=== PATIENT | female | born 1940 | race Caucasian/White ===

== ENCOUNTER 2018-07-28 11:30 | Outpatient (CLI) | payer MEDICARE, BC | END 2018-07-28 11:31 | disposition home or self-care (01) | LOC: BICMAMMO 11:30 | PROVIDERS: ATTEND Orthopaedic Surgery Sports Medicine | DX: Z12.31 Encounter for screening mammogram for malignant neoplasm of breast (principal); R92.1 Mammographic calcification found on diagnostic imaging of breast | CPT/HCPCS: 77063; 77067 ==

== ENCOUNTER 2018-11-27 11:09 | Emergency (ER) | payer MEDICARE, BC ==
[2018-11-27] MEDS ORDERED: Morphine 4 MG/ML VIAL ONE (11:50)
[2018-11-27] MEDS ORDERED: Ondansetron PF 4 MG/2 ML Vial ONE (11:50)
[2018-11-27 12:00] LABS: #Lymphocytes 0.8 thou/uL (1.20-3.40); #Monocytes 0.3 thou/uL (0.11-0.59); #Neutrophils 8.2 thou/uL (1.40-6.50); %Basophils 0.2 % (0.0-1.0); %Eosinophils 0.4 % (0.0-10.0); %Monocytes 3.5 % (0.0-10.0); %Neutrophils 87.9 % (42.0-75.0); Hemoglobin 13.9 g/dL (12.0-16.0); Mean Corpuscular HGB CONC 34.3 g/dL (32.0-36.0); Mean Corpuscular Hemoglobin 30.3 pg (27.0-31.0); Mean Corpuscular Volume 88.4 fL (78.0-98.0); Mean Platelet Volume 7.3 fL (7.4-10.4); Platelet Count 216 thou/uL (130-400); RBC Distribution Width 12.1 % (11.5-14.5); Red Blood Cell (RBC) Count 4.58 mill/uL (4.20-5.40); White Blood Cell (WBC) Count 9.3 thou/uL (4.8-10.8)
[2018-11-27 12:26] LABS: ALT (SGPT) 13 U/L (8-55); AST (SGOT) 21 U/L (5-34); Albumin 4.3 g/dL (3.4-4.8); Alkaline Phosphatase 53 U/L (40-150); Anion Gap 15 mmol/L (10-20); BUN (Urea Nitrogen) 17 mg/dL (9.8-20.1); Bilirubin, Total 0.4 mg/dL (0.2-1.2); Calc. Creatinine Clearance 0 mL/min (70-130); Calcium 9.3 mg/dL (7.8-10.44); Carbon Dioxide 24 mmol/L (23-31); Chloride 104 mmol/L (98-107); Estimated GFR-MDRD 63; Globulin 2.3 g/dL (2.4-3.5); Glucose 121 mg/dL (83-110); Potassium 4.2 mmol/L (3.5-5.1); Protein, Total 6.6 g/dL (6.0-8.3); Sodium 139 mmol/L (136-145)
--- NOTE | 2018-11-27 12:35 | CT ---
CT BRAIN NONCONTRAST: DATE: 11/27/2018 HISTORY: 78-year-old female with headache. "History of sinus headaches." COMPARISON: None FINDINGS: There is no evidence of acute intra-axial or extra-axial hemorrhage. There is no midline shift or any other mass effect. There is no extra-axial fluid collection. There is no evidence of obstructive hydrocephalus. Calvarium is intact. At the inferior recess of the right frontal sinus there is a very hyperdense, smoothly well circumscribed, oval 12 x 8 mm calcification. This is surrounded by a small amount of soft tissue density material consistent with mucosal thickening or retention cyst. Th e bilateral frontal sinuses are hypoplastic, especially the right. Left frontal sinus is clear. The visualized upper portions of the ethmoid air cells are clear. Partial opacification of right sphenoid sinus air cell. The maxillary sinuses are not included in the levels of coverage. The bilateral tympanomastoid cavities are grossly clear. IMPRESSION: 1. No acute intracranial findings. 2. 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
[2018-11-27 13:28] LABS: Bilirubin Negative (Negative); Blood, Urine Negative (Negative); Clarity Clear (Clear); Glucose, Urine (Dipstick) Negative (Negative); Leukocyte Trace (Negative); Nitrite Negative (Negative); Protein, Urine (Dipstick) Negative (Neg-Trace); Urobilinogen 0.2 mg/dL (0.2-1.0)
[2018-11-27 13:35] LABS: Bacteria/HPF None Seen HPF (None Seen); Hyaline Casts/LPF NONE SEEN LPF (0-3 Hyaline); RBC/HPF 0-3 HPF (0-3); Renal Epithelial 0-3 HPF (0-3); Squamous Epithelial 0-3 HPF (0-3); Transitional Epithelial 0-3 HPF (0-3)
== END 2018-11-27 14:00 | disposition home or self-care (01) ==
LOC: ERS 11:09
DX: N39.0 Urinary tract infection, site not specified (principal); R51 Headache; E03.9 Hypothyroidism, unspecified; Z79.899 Other long term (current) drug therapy
CPT/HCPCS: 51701; 70450; 80053; 81003; 81015; 84484; 85025; 87086; 93005; 96374; 96375; J2270; J2405

== ENCOUNTER 2019-01-13 19:36 | Observation (INO) | payer MEDICARE, BC ==
--- NOTE | 2019-01-13 20:02 | CT ---
CT Brain WO Con HISTORY: Seizure. COMPARISON: 11/27/2018 exam. FINDINGS: The ventricular and cisternal system shows age-appropriate change. There are no signs of in tracerebral hemorrhage or extra-axial fluid collections. The mastoid air cells are clear. An osteoma in the right frontal sinus region is incidentally noted. IMPRESSION: No acute intracranial abnormalities.
[2019-01-13 20:06] LABS: #Basophils 0.1 thou/uL (0.0-0.2); #Eosinphils 0.1 thou/uL (0.0-0.7); #Lymphocytes 3.2 thou/uL (1.20-3.40); #Monocytes 0.9 thou/uL (0.11-0.59); #Neutrophils 5.9 thou/uL (1.40-6.50); %Basophils 0.7 % (0.0-1.0); %Eosinophils 1.2 % (0.0-10.0); %Lymphocytes 31.1 % (21.0-51.0); %Monocytes 8.7 % (0.0-10.0); %Neutrophils 58.4 % (42.0-75.0); Hemoglobin 15.2 g/dL (12.0-16.0); Mean Corpuscular HGB CONC 35.7 g/dL (32.0-36.0); Mean Corpuscular Hemoglobin 31.5 pg (27.0-31.0); Mean Corpuscular Volume 88.1 fL (78.0-98.0); Mean Platelet Volume 6.7 fL (7.4-10.4); Platelet Count 314 thou/uL (130-400); Red Blood Cell (RBC) Count 4.84 mill/uL (4.20-5.40); White Blood Cell (WBC) Count 10.1 thou/uL (4.8-10.8)
[2019-01-13 20:12] LABS: INR-International Normal Ratio 1.1; Prothrombin Time 13.7 SEC (12.0-14.7)
--- NOTE | 2019-01-13 20:24 | RAD ---
XR Chest 1 View Portable HISTORY: Seizure. COMPARISON: None. FINDINGS: Heart size is within normal limits for portable technique. There are atherosclerotic change s of the aorta. The lungs are clear of infiltrates. The bones are demineralized. IMPRESSION: No active intrathoracic disease.
[2019-01-13 20:26] LABS: ALT (SGPT) 15 U/L (8-55); AST (SGOT) 18 U/L (5-34); Albumin 4.5 g/dL (3.4-4.8); Alkaline Phosphatase 58 U/L (40-150); Anion Gap 20 mmol/L (10-20); BUN (Urea Nitrogen) 20 mg/dL (9.8-20.1); Bilirubin, Total 0.7 mg/dL (0.2-1.2); Calc. Creatinine Clearance 0 mL/min (70-130); Carbon Dioxide 20 mmol/L (23-31); Chloride 94 mmol/L (98-107); Estimated GFR-MDRD 62; Globulin 2.3 g/dL (2.4-3.5); Glucose 115 mg/dL (83-110); Potassium 3.6 mmol/L (3.5-5.1); Protein, Total 6.8 g/dL (6.0-8.3); Sodium 130 mmol/L (136-145)
[2019-01-13 22:06] LABS: Bilirubin Negative (Negative); Blood, Urine Negative (Negative); Clarity Clear (Clear); Glucose, Urine (Dipstick) Normal (Negative); Leukocyte Negative Leu/uL (Negative); Nitrite Negative (Negative); Protein, Urine (Dipstick) 10 mg/dL (Neg-Trace); Urobilinogen Normal mg/dL (Less than 2)
[2019-01-13] MEDS ORDERED: diphenhydrAMINE 50 MG/ML VIAL ONE (23:00)
[2019-01-13] MEDS ORDERED: Metoclopramide HCl 10 MG/2 ML VIAL ONE (23:00)
[2019-01-13] MEDS ORDERED: Acetaminophen 500 MG TAB ONE (23:00)
[2019-01-14] MEDS ORDERED: Prevnar 13-Val Conj/PF 0.5 ML SYRINGE IM ONE (08:30)
--- NOTE | 2019-01-14 13:12 | HP ---
HISTORY OF PRESENT ILLNESS: The patient is 78-year-old female, who had an apparent seizure witnessed by her . The patient has no recollection of events. The patient's was in the room with her, states that she began having seizure-like activity that night last night. Noted a generalized tonic-clonic movements like she was not breathing, performed some CPR on her, but I doubt that she had a pulse during this time. The patient had a postictal state, where she did not know where she was. She has no recollection of events. She was brought to the emergency room. She was seen and evaluated in the emergency room. At that time, the patient became more alert and aware of her surroundings. She has had no previous histories of seizures that she is aware of and is currently maintained on gabapentin, levothyroxine, metoprolol, and Macrobid. There is no recent history of head trauma. No recent history of fever. Illnesses, otherwise noted. She notes she has been under a great deal of stress. Her has terminal cancer, may not have been sleeping as well as she could have been over the last several weeks. Otherwise, no other medical complaints are noted. She notes no chest pain. No nausea, vomiting, or diarrhea. She does complain to have some injuries to her tongue. PAST MEDICAL HISTORY: Positive for trigeminal neuralgia and hypertension. PAST SURGICAL HISTORY: Positive for appendectomy and tonsillectomy. SOCIAL AND PERSONAL HISTORY: She is . She does not smoke. Does not drink alcohol. is with terminal illness with cancer. ALLERGIES: SHE IS ALLERGIC TO DESYREL, LATEX, LODINE, AND SULFA. REVIEW OF SYSTEMS: Otherwise, negative. FAMILY HISTORY: Noncontributory at this time. PHYSICAL EXAMINATION: VITAL SIGNS: Temperature 98.3, blood pressure 118/56, O2 saturations 94% on room air, pulse 63, and respirations 16. GENERAL: She is alert and active, in no distress. HEENT: Sclerae and conjunctivae are clear. Head reveals no injuries. The tongue is noted to be bruised, bitten in many places. NECK: Supple. Full range of motion. No masses. No bruits. LUNGS: Clear. HEART: Reveals a regular rate and rhythm. No murmurs, gallops, or rubs. ABDOMEN: Soft and nontender. Bowel sounds present and active. No hepatosplenomegaly is noted. EXTREMITIES: No clubbing, edema, or cyanosis noted at this time. NEUROLOGIC: She is alert and oriented x3. She is able to move all extremities. Responds to all commands. LABORATORY DATA: White blood count is 10.1, hemoglobin 15.2, and hematocrit 42.6. Sodium 138, potassium 3.6, chloride 94, CO2 of 20, BUN 20, creatinine 0.28, and glucose 115. Liver function tests are normal. Urinalysis, otherwise clear. IMAGING DATA: CT scan of brain is normal. IMPRESSION: This is a 78-year-old female, who presents with seizure. The etiology of the seizure is not clear. At this time, she is not on antiseizure medications. PLAN: We will begin further seizure workup with EEG. Neurology consult. I have discussed the findings with the patient and the family at bedside. Should it be necessary, she may have to give up driving in 6 months. A decision will be made at a later time. Job ID: [id number]
[2019-01-14] MEDS ORDERED: Lorazepam 1 MG TAB PO PRN (13:46)
[2019-01-14] MEDS: Acetaminophen 325 MG TAB PO PRN ×2 (13:55→20:38)
--- NOTE | 2019-01-14 16:05 | MRI ---
Exam: Brain MRI with and without contrast HISTORY: New onset seizure. COMPARISON: None FINDINGS: Gradient echo sequence: No hemorrhage Calvarium: Appropriate T1 marrow signal intensity Midline brain parenchyma: Unremarkable Cerebrum:Brain volume is age-appropriate. Cortical thompson-white white matter differentiation is preserv ed. No significant T2 or FLAIR white matter hyperintensities. Minimal hyperintensity is nonspecific but favored to be chronic change. Symmetric signal intensity of the hippocampi Ventricles: No evidence of hydrocephalus. Sinuses and mastoid air cells: Minimal mucosal disease of the sphenoid sinuses and right frontal sinu ses. Partial right mastoid air cell opacification. Aeration of the left mastoid air cells. Diffusion: Central arterial flow is maintained. Absent restricted diffusion. Postcontrast images: No pathologic enhancement of the brain parenchyma. IMPRESSION: 1. No pathologic enhancement of the brain parenchyma 2. Absent restricted diffusion. No acute infarct.
[2019-01-15] MEDS ORDERED: Levothyroxine Sodium 50 MCG TAB PO SCH (06:00)
[2019-01-15] MEDS: Acetaminophen 325 MG TAB PO PRN (06:30)
[2019-01-15 06:32] VITALS: BMI 23.3
[2019-01-15 07:45] VITALS: BP 128/66; TEMP 97.8
[2019-01-15] MEDS ORDERED: Metoprolol Tartrate 25 MG TAB PO SCH (09:00)
--- NOTE | 2019-01-15 10:48 | PRG ---
DATE OF SERVICE: 01/15/2019 SUBJECTIVE: Ms. Martinez has had uneventful night. No further seizure episode. She has had workup with MRI, which revealed no evidence of any acute neurological issue. OBJECTIVE: VITAL SIGNS: Her blood pressure is 109/57, temperature 98.5, and O2 saturations 92% on room air. GENERAL: She is alert, active, in no distress. LUNGS: Clear. HEART: Reveals a regular rate and rhythm. No murmurs, gallops, or rubs. NEUROLOGIC: She is grossly intact. Following all commands. Awake, alert, and oriented x3. IMPRESSION: Seizure, etiology unknown. PLAN: The patient can be safely discharged home on home medications. She will follow up with me in 1 week for further neurological referral. I have given her some precautions against driving at this time. Job ID: [id number]
--- NOTE | 2019-01-15 11:20 | DIS ---
DATE OF ADMISSION: 01/14/2019 DATE OF DISCHARGE: 01/15/2019 The patient was discharged home after having a seizure. No seizure disorder was diagnosed, simply seizure as a diagnosis. DISCHARGE MEDICATIONS: As follows; 1. Tylenol as needed for headache. 2. Levothyroxine 0.05 mg daily. 3. Metoprolol 25 mg daily. 4. Gabapentin 300 mg b.i.d. FOLLOW UP: She will be seen in followup by me in 1 week. Job ID: [id number]
--- NOTE | 2019-01-20 09:32 | EEG ---
Referring Physician: CURRY IVY EEG # [id number] TEST TYPE: ROUTINE PORTABLE INPATIENT REPORT: AN EEG USING THE INTERNATIONAL TEN-TWENTY SYSTEM OF ELECTRODE PLACEMENT WAS PERFORMED. The waking background is a medium amplitude 10-11 hertz alpha frequency. The patient remained awake throughout the study/ Photic stimulation was unremarkable. No epileptiform features were present. IMPRESSION: THIS IS A NORMAL AWAKE EEG. Paraplanner: ELSIE Product Applications Scientist: [email or web address].MORE CAMPBELL
--- NOTE | 2019-01-24 15:18 | EKG ---
Test Reason : Blood Pressure : / mmHG Vent. Rate : 088 BPM Atrial Rate : 088 BPM P-R Int : 148 ms QRS Dur : 084 ms QT Int : 384 ms P-R-T Axes : 030 -01 033 degrees QTc Int : 464 ms Normal sinus rhythm Nonspecific ST and T wave abnormality Abnormal ECG Confirmed by CURRY IVY DO ([id number]), news copy editor RIAN LALA ([id number]) on 01/24/2019 3:17:51 PM Referred By: Confirmed By:CURRY IVY DO
== END 2019-01-15 08:50 | disposition home or self-care (01) ==
LOC: ERS 19:36 → 2SE 01-14 01:13
PROVIDERS: ADMIT Family Medicine; ATTEND Family Medicine
DX: R56.9 Unspecified convulsions (principal); I10 Essential (primary) hypertension; E03.9 Hypothyroidism, unspecified; Z79.899 Other long term (current) drug therapy; Z88.1 Allergy status to other antibiotic agents; Z88.2 Allergy status to sulfonamides; Z91.040 Latex allergy status; Z91.041 Radiographic dye allergy status
CPT/HCPCS: 70450; 70553; 71045; 80053; 81003; 82962; 84146; 84484; 85025; 85610; 85730; 93005; 95816; 95819; 96365; 96366; 96375; 99285; G0378 ×3; 36416; J1200; J2765

== ENCOUNTER 2019-06-30 13:27 | Emergency (ER) | payer MEDICARE, BC ==
[2019-06-30 14:19] LABS: #Basophils 0.1 thou/uL (0.0-0.2); #Eosinphils 0.1 thou/uL (0.0-0.7); #Lymphocytes 1.3 thou/uL (1.20-3.40); #Monocytes 0.5 thou/uL (0.11-0.59); #Neutrophils 4.2 thou/uL (1.40-6.50); %Basophils 0.9 % (0.0-1.0); %Eosinophils 1.3 % (0.0-10.0); %Lymphocytes 21.9 % (21.0-51.0); %Monocytes 7.6 % (0.0-10.0); %Neutrophils 68.3 % (42.0-75.0); Hemoglobin 13.8 g/dL (12.0-16.0); Mean Corpuscular HGB CONC 34.9 g/dL (32.0-36.0); Mean Corpuscular Hemoglobin 31.8 pg (27.0-31.0); Mean Corpuscular Volume 91.1 fL (78.0-98.0); Mean Platelet Volume 6.8 fL (7.4-10.4); Platelet Count 240 thou/uL (130-400); RBC Distribution Width 11.8 % (11.5-14.5); Red Blood Cell (RBC) Count 4.33 mill/uL (4.20-5.40); White Blood Cell (WBC) Count 6.1 thou/uL (4.8-10.8)
--- NOTE | 2019-06-30 14:38 | CT ---
CT HEAD WITHOUT IV CONTRAST COMPARISON: 01/13/2019 HISTORY: Weakness and dizziness. Possible seizure. TECHNIQUE: Axial CT imaging at 5 mm intervals from vertex through skull base without contrast FINDINGS: There is mild cerebral volume loss not unexpected for the patient's age. There is no evidence of an a cute infarction, hemorrhage, mass effect, or midline shift. The ventricular system is normal in size, shape, and position. Again noted is an osteoma in the right frontal sinus. Minimal mucosal thickening is seen in the right sphenoid sinus. Thickening of the romero right sphenoid sinus suggesting chronic sinusitis. Mastoid air cells are clear. Osseous structures appear intact. IMPRESSION: 1. No acute intracranial abnormality demonstrated.
[2019-06-30 14:48] LABS: ALT (SGPT) 9 U/L (8-55); AST (SGOT) 20 U/L (5-34); Albumin 4.4 g/dL (3.4-4.8); Alkaline Phosphatase 54 U/L (40-110); Anion Gap 8 mmol/L (10-20); BUN (Urea Nitrogen) 17 mg/dL (9.8-20.1); Bilirubin, Total 0.4 mg/dL (0.2-1.2); Calc. Creatinine Clearance 0 mL/min (70-130); Carbon Dioxide 30 mmol/L (23-31); Chloride 102 mmol/L (98-107); Estimated GFR-MDRD 69; Globulin 2.3 g/dL (2.4-3.5); Glucose 98 mg/dL (83-110); Potassium 3.8 mmol/L (3.5-5.1); Protein, Total 6.7 g/dL (6.0-8.3); Sodium 136 mmol/L (136-145)
[2019-06-30] MEDS ORDERED: Acetaminophen 500 MG TAB ONE (20:08)
[2019-06-30 20:20] LABS: Bilirubin Negative (Negative); Blood, Urine Negative (Negative); Clarity Clear (Clear); Glucose, Urine (Dipstick) Normal (Negative); Leukocyte 500 Leu/uL (Negative); Nitrite Negative (Negative); Protein, Urine (Dipstick) Negative (Neg-Trace); RBC/HPF 0-3 HPF (0-3); Urobilinogen Normal mg/dL (Less than 2)
[2019-06-30 20:22] LABS: Bacteria/HPF Rare-Few HPF (None Seen)
== END 2019-06-30 21:00 | disposition home or self-care (01) ==
LOC: ERS 13:27
DX: R56.9 Unspecified convulsions (principal); E03.9 Hypothyroidism, unspecified; Z79.899 Other long term (current) drug therapy
CPT/HCPCS: 36415; 70450; 80053; 81003; 81015; 84484; 85025; 93005

== ENCOUNTER 2019-08-06 17:04 | Emergency (ER) | payer MEDICARE, BC | END 2019-08-06 21:39 | disposition home or self-care (01) | LOC: ERS 17:04 | DX: L27.0 Generalized skin eruption due to drugs and medicaments taken internally (principal); R51 Headache; R42 Dizziness and giddiness; M54.9 Dorsalgia, unspecified; R07.9 Chest pain, unspecified; T42.6X5A Adverse effect of other antiepileptic and sedative-hypnotic drugs, initial encounter; I49.9 Cardiac arrhythmia, unspecified; E03.9 Hypothyroidism, unspecified; Z79.899 Other long term (current) drug therapy; Z86.73 Personal history of transient ischemic attack (TIA), and cerebral infarction without residual deficits | CPT/HCPCS: 99283 ==

== ENCOUNTER 2019-08-15 22:49 | Emergency (ER) | payer MEDICARE, BC ==
[2019-08-15 23:43] LABS: #Basophils 0.1 thou/uL (0.0-0.2); #Eosinphils 0.3 thou/uL (0.0-0.7); #Lymphocytes 0.8 thou/uL (1.20-3.40); #Monocytes 0.6 thou/uL (0.11-0.59); #Neutrophils 3.5 thou/uL (1.40-6.50); %Eosinophils 5.5 % (0.0-10.0); %Lymphocytes 15.1 % (21.0-51.0); %Monocytes 11.3 % (0.0-10.0); %Neutrophils 67.1 % (42.0-75.0); Hemoglobin 11.6 g/dL (12.0-16.0); Mean Corpuscular Hemoglobin 31.4 pg (27.0-31.0); Mean Corpuscular Volume 89.7 fL (78.0-98.0); Mean Platelet Volume 6.2 fL (7.4-10.4); Platelet Count 319 thou/uL (130-400); RBC Distribution Width 11.4 % (11.5-14.5); Red Blood Cell (RBC) Count 3.68 mill/uL (4.20-5.40); White Blood Cell (WBC) Count 5.3 thou/uL (4.8-10.8)
[2019-08-16 00:02] LABS: ALT (SGPT) 29 U/L (8-55); AST (SGOT) 34 U/L (5-34); Albumin 3.6 g/dL (3.4-4.8); Alkaline Phosphatase 103 U/L (40-110); Anion Gap 14 mmol/L (10-20); BUN (Urea Nitrogen) 9 mg/dL (9.8-20.1); Bilirubin, Total 0.3 mg/dL (0.2-1.2); Calc. Creatinine Clearance 0 mL/min (70-130); Calcium 8.3 mg/dL (7.8-10.44); Carbon Dioxide 20 mmol/L (23-31); Chloride 100 mmol/L (98-107); Estimated GFR-MDRD 88; Globulin 2.2 g/dL (2.4-3.5); Glucose 102 mg/dL (83-110); Lipase 196 U/L (8-78); Potassium 3.6 mmol/L (3.5-5.1); Protein, Total 5.8 g/dL (6.0-8.3); Sodium 130 mmol/L (136-145)
[2019-08-16 01:38] LABS: Bilirubin Negative (Negative); Blood, Urine Trace (Negative); Glucose, Urine (Dipstick) Negative (Negative); Leukocyte Moderate (Negative); Nitrite Negative (Negative); Protein, Urine (Dipstick) Negative (Neg-Trace); Urobilinogen 0.2 mg/dL (Less than 2)
[2019-08-16 01:42] LABS: Clarity Hazy (Clear)
--- NOTE | 2019-08-16 11:54 | CT ---
PRELIMINARY REPORT/[facility]/EMERGENCY AFTER HOURS PROCEDURE EXAM: CT abdomen/pelvis with contrast CLINICAL HISTORY: Misty presents to the ED with c/o fever onset tonight. Pt reports intermittent headache x 1 week. Pt re ports nausea with headache. Pt reports a dry cough. Pt reports she last took Tylenol at 1900. Pt reports she was seen by her PCP today for dysuria and was diagnosed with a UTI. Pt reports she took M acrobid tonight. Pt reports low back pain. Pt reports chronic neck pain. COMPARISONS: None provided. TECHNIQUE: CT imaging of the abdomen and pelvis after intravenous administration of 100 mL Isovue-370iodinated c ontrast. Multiplanar reconstructions performed. FINDINGS: LOWER CHEST: Minimal atelectasis. LIVER: Small amount of fatty infiltration along the falciform ligament. Liver is otherwise normal. GALLBLADDER/BILIARY: No cholelithiasis. No biliary ductal dilatation. SPLEEN: Normal. PANCREAS: Normal. ADRENAL GLANDS: Normal. KIDNEYS/URETERS/URINARY BLADDER: Subcentimeter hypodensities of the left lower renal pole, which are too small to characterize, but likely represent cysts. Kidneys are otherwise unremarkable. Ureters are normal. No urinary stones. Urinary bladder is unremarkable. REPRODUCTIVE: Normal. STOMACH/BOWEL: Small hiatal hernia. Distal esophagus and stomach are otherwise normal. Small bowel is normal. Large bowel are unremarkable. APPENDIX: Not visualized. PERITONEUM/MESENTERY: Trace nonspecific pelvic free fluid. No intraperitoneal free air. VASCULAR: Calcification of the abdominal aorta and major branches. No abdominal aortic aneurysm. LYMPH NODES: No lymphadenopathy. MUSCULOSKELETAL: Degenerative changes of the lumbar spine. Anterolisthesis at L4-L5 measuring 4 mm, r etrolisthesis at L3-L4 measuring 3 mm, and retrolisthesis at L2-L3 measuring 3 mm. These are likely degenerative. There is likely pseudoarticulation of the L3-L4 and L4-L5 spinous processes ([employer] ph enomenon). Degenerative changes of the hips. 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 IMPRESSION: 1. Trace nonspecific pelvic free fluid. 2. Otherwise, no acute abdominal or pelvic abnormality. ELECTRONICALLY SIGNED BY: Rogelio Ray MD Aug 16, 2019 1:51:42 AM CDT This report is intended for review by the ordering physician only, in accordance of law. If you recei ve this report in error, please call [facility] at [phone]. FINAL REPORT CT abdomen and pelvis with IV contrast 08/16/2019 performed on emergency basis at 0102 hours HISTORY: Abdomen pain. Fever. FINDINGS: Agree with the preliminary report by Dr. Ray from [facility]. No acute abnormalitie s or inflammatory process apparent. No evidence of bowel obstruction. Incidental-type findings are as detailed in the preliminary report. Code QA. Transcribed Date/Time: 08/16/2019 12:06 PM
[2019-08-16] MEDS ORDERED: Iopamidol 370 76% 100 ML VIAL ONE (14:31)
== END 2019-08-16 03:17 | disposition home or self-care (01) ==
LOC: ERS 22:49
DX: N39.0 Urinary tract infection, site not specified (principal); E03.9 Hypothyroidism, unspecified; I49.9 Cardiac arrhythmia, unspecified; Z86.73 Personal history of transient ischemic attack (TIA), and cerebral infarction without residual deficits; Z79.899 Other long term (current) drug therapy
CPT/HCPCS: 51701; 74177; 80053; 81003; 81015; 83605; 83690; 84484; 85025; 87040; 87077; 87086; 87186; 93005; A4353; Q9967

== ENCOUNTER 2019-09-02 12:11 | Outpatient (CLI) | payer MEDICARE, BC ==
--- NOTE | 2019-09-02 14:27 | MRI ---
CERVICAL SPINE MRI WITHOUT IV CONTRAST: HISTORY: Cervical radiculitis, neck pain. FINDINGS: Generalized disk desiccation changes and ligament and facet hypertrophic changes. Visualized brain a ppears unremarkable. There appear to be some fluid or mucosal changes in the right sphenoid sinus. C2-C3 disk: No associated stenosis. C3-C4 disk: No associated stenosis. C4-C5 disk: Very mild anterolisthesis with minimal disk-osteophytosis and slight indention of the ve ntral thecal sac without significant foraminal stenosis. C5-C6 disk: Left central disk-osteophyte with some thecal sac compression and mild left central cord indention with very mild left foraminal stenosis. C6-C7 disk: Disk-osteophyte with mild lateral recess stenosis and moderate left foraminal stenosis. C7-T1 disk: Unremarkable. 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 2. No evidence for spinal cord mass or overt spinal cord compression. Mild ventral thecal sac compr ession and mild cord indention as well as disk-osteophytosis. POS: [facility]
== END 2019-09-02 12:12 | disposition home or self-care (01) ==
LOC: BICMRI 12:11
PROVIDERS: ATTEND Family Medicine
DX: M54.12 Radiculopathy, cervical region (principal); M25.78 Osteophyte, vertebrae; M48.02 Spinal stenosis, cervical region
CPT/HCPCS: 72141

== ENCOUNTER 2019-12-06 09:15 | Inpatient (IN) | payer MEDICARE, BC ==
[2019-12-06] MEDS ORDERED: Iopamidol-370 76% 500 ML 1 ML ONE (09:34)
[2019-12-06] MEDS ORDERED: methylPREDNISolone Sod Succ 40 MG VIAL ONE (09:58)
[2019-12-06] MEDS ORDERED: Famotidine/PF 20 mg/2ml Vial ONE (09:58)
[2019-12-06] MEDS ORDERED: diphenhydrAMINE 50 MG/ML VIAL ONE (09:58)
[2019-12-06 10:06] LABS: #Eosinphils 0.1 thou/uL (0.0-0.7); #Lymphocytes 0.6 thou/uL (1.20-3.40); #Monocytes 0.7 thou/uL (0.11-0.59); #Neutrophils 5.7 thou/uL (1.40-6.50); %Basophils 0.1 % (0.0-1.0); %Eosinophils 1.7 % (0.0-10.0); %Lymphocytes 8.2 % (21.0-51.0); %Monocytes 9.3 % (0.0-10.0); %Neutrophils 80.8 % (42.0-75.0); Hemoglobin 13.1 g/dL (12.0-16.0); Mean Corpuscular HGB CONC 34.4 g/dL (32.0-36.0); Mean Corpuscular Hemoglobin 30.6 pg (27.0-31.0); Mean Corpuscular Volume 88.8 fL (78.0-98.0); Platelet Count 303 thou/uL (130-400); RBC Distribution Width 12.5 % (11.5-14.5); Red Blood Cell (RBC) Count 4.28 mill/uL (4.20-5.40); White Blood Cell (WBC) Count 7.1 thou/uL (4.8-10.8)
[2019-12-06 10:19] LABS: ALT (SGPT) 22 U/L (8-55); AST (SGOT) 16 U/L (5-34); Albumin 3.2 g/dL (3.4-4.8); Alkaline Phosphatase 68 U/L (40-110); Anion Gap 18 mmol/L (10-20); BUN (Urea Nitrogen) 12 mg/dL (9.8-20.1); Bilirubin, Total 0.2 mg/dL (0.2-1.2); Calc. Creatinine Clearance 0 mL/min (70-130); Carbon Dioxide 20 mmol/L (23-31); Chloride 99 mmol/L (98-107); Estimated GFR-MDRD 87; Globulin 2.1 g/dL (2.4-3.5); Glucose 93 mg/dL (83-110); Lipase 83 U/L (8-78); Protein, Total 5.3 g/dL (6.0-8.3); Sodium 134 mmol/L (136-145)
[2019-12-06 10:25] LABS: Potassium 2.7 mmol/L (3.5-5.1)
[2019-12-06 12:00] LABS: Bacteria/HPF None Seen HPF (None Seen); Bilirubin Negative (Negative); Blood, Urine Negative (Negative); Clarity Clear (Clear); Glucose, Urine (Dipstick) Normal (Negative); Ketone, Urine Greater than 150 mg/dL (Negative); Leukocyte Negative Leu/uL (Negative); Nitrite Negative (Negative); Protein, Urine (Dipstick) 30 mg/dL (Neg-Trace); RBC/HPF 0-3 HPF (0-3); Specific Gravity, Urine 1.044 (1.002-1.036); Squamous Epithelial 0-3 HPF (0-3); Urobilinogen Normal mg/dL (Less than 2); WBC/HPF 0-3 HPF (0-3); pH, Urine 6.5 (5.0-9.0)
[2019-12-06] MEDS ORDERED: metroNIDAZOLE 250 MG TAB ONE (14:04)
[2019-12-06] MEDS ORDERED: Ciprofloxacin 500 MG TAB ONE (14:04)
--- NOTE | 2019-12-06 14:25 | CT ---
CT ABDOMEN AND PELVIS PERFORMED WITH CONTRAST ENHANCEMENT: History: Left sided abdomen pain. Patient was pre-medicated for contrast allergy using the fast-prep protocol. Comparison: 08-16-2019 FINDINGS: The lung bases show some minimal subsegmental atelectatic change. The liver and spleen show no focal abnormalities and are within normal limits of size. Pancreas and g allbladder regions appear unremarkable. There is some minimal ascites present with some fluid adjacen t to the liver. Right and left adrenal glands and right and left kidneys are normal in size. Tiny hypodensity within the left kidney, statistically most likely a small cyst. There is no significant periaortic or mesent charles adenopathy. Although the colon is decompressed, there is suggestion of some mild wall thickening to the colon suggesting a colitis. I do not appreciate any pneumotosis type changes. Findings are fe lt to be fairly diffuse, perhaps more on the left side. No pelvic lymphadenopathy or mass. Review of osseous structures shows some arthritic change of the spine. IMPRESSION: Findings that would suggest colitis. There is some minimal ascites also noted. POS: [facility]
[2019-12-06] MEDS ORDERED: Ondansetron PF 4 MG/2 ML Vial IVP PRN (15:45)
[2019-12-06] MEDS ORDERED: Ondansetron ODT 4 MG TAB SL PRN (15:45)
[2019-12-06 15:57] VITALS: BMI 20.2
[2019-12-06] MEDS: NS 0.9% w/ 40 MEQ KCL 1,000 ML IV SCH ×2 (16:51→20:30)
--- NOTE | 2019-12-06 17:11 | PDOC.HHP ---
Hospitalist HPI - History of Present Illness abdominal pain History of Present Illness: This is a 79 year old female with hypothyroidism who presented to the hospital with abdominal pain. The patient states that last week, she had fever, chills and diarrhea. She was prescribed azithromycin which she took for five days. Since then, she has had a gaseous sensation in her abdomen when she eats and her stools have become more soft. She states the pain is more of a discomfort pressure than a real pain, does not radiate. SHe has not tried anything for the discomfort/gas. SHe denies any recent travel history or eating any undercooked meat. She denies chest pain, shortness of breath, or cough. She denies runny nose (in fact she states her nostrils are dry), and denies sore throat. She states she was supposed to have an endoscopy with Dr. Weston but she never scheduled the appointment because she did not feel well enough. ED Course: When the patient presented to the ER, he was noted to be tachycardic. Labs showed potassium of 2.7. CT abdomen showed mild colitis. The patient was given 40 mg oral potassium + IV potassium, pepcid, benadryl, solumedrol, cipro and flagyl. She was admitted for further workup. Hospitalist ROS - Review of Systems Constitutional: denies: fever, chills Eyes: denies: pain, vision change ENT: denies: ear pain, ear discharge Respiratory: denies: cough, dry, shortness of breath Cardiovascular: denies: chest pain, palpitations, orthopnea Gastrointestinal: reports: nausea, vomiting, abdominal pain Genitourinary: denies: dysuria, frequency Musculoskeletal: denies: neck pain, shoulder pain Skin: denies: rash, lesions Neurological: denies: weakness, numbness - Medication Medications: Active Medications Generic Name Dose Route Start Last Admin Trade Name Freq PRN Reason Stop Dose Admin Potassium Chloride/Sodium Chloride 1,000 mls @ 125 mls/hr 12/06/19 11:30 10/20 16:51 Ns 0.9% W/ 40 Meq Kcl IV Not Given .Q8H [facility] Hospitalist History - Past Medical History Other Medical History: Trigeminal neuralgia Hypothyroidism - Past Surgical History Past Surgical History: reports: Tonsillectomy Other Surgical History: Thyroidectomy Appendectomy - Family History Other Family History: No history of colitis in family - Social History Smoking Status: Never smoker Alcohol: reports: None - Exam General Appearance: NAD, awake alert Eye: PERRL, anicteric sclera ENT: normocephalic atraumatic, no oropharyngeal lesions Neck: no JVD Heart: RRR, no murmur, no gallops, no rubs Respiratory: CTAB, no wheezes, no ronchi Gastrointestinal: soft Gastrointestinal - other findings: RLQ and LLQ tenderness Extremities: no cyanosis, no clubbing, no edema Skin: normal turgor, no lesions, no rashes Neurological: cranial nerve grossly intact, normal sensation to touch, no focal deficits, no new deficit Hospitalist Results - Labs Result Diagrams: 12/06/19 09:49 12/06/19 09:49 Lab results: WBC 7.1 thou/uL (4.8-10.8) 12/06/19 09:49 Hgb 13.1 g/dL (12.0-16.0) 12/06/19 09:49 Hct 38.0 % (36.0-47.0) 12/06/19 09:49 MCV 88.8 fL (78.0-98.0) 12/06/19 09:49 Plt Count 303 thou/uL (130-400) 12/06/19 09:49 Neutrophils % 80.8 % (42.0-75.0) H 12/06/19 09:49 Sodium 134 mmol/L (136-145) L 12/06/19 09:49 Potassium 2.7 mmol/L (3.5-5.1) L* 12/06/19 09:49 Chloride 99 mmol/L (98-107) 12/06/19 09:49 Carbon Dioxide 20 mmol/L (23-31) L 12/06/19 09:49 BUN 12 mg/dL (9.8-20.1) 12/06/19 09:49 Creatinine 0.66 mg/dL (0.6-1.1) 12/06/19 09:49 Glucose 93 mg/dL (83-110) 12/06/19 09:49 Lactic Acid 0.8 mmol/L (0.5-2.2) 12/06/19 09:49 Calcium 8.0 mg/dL (7.8-10.44) 12/06/19 09:49 Total Bilirubin 0.2 mg/dL (0.2-1.2) 12/06/19 09:49 AST 16 U/L (5-34) 12/06/19 09:49 ALT 22 U/L (8-55) 12/06/19 09:49 Alkaline Phosphatase 68 U/L (40-110) 12/06/19 09:49 Serum Total Protein 5.3 g/dL (6.0-8.3) L 12/06/19 09:49 Albumin 3.2 g/dL (3.4-4.8) L 12/06/19 09:49 Lipase 83 U/L (8-78) H 12/06/19 09:49 Urine Ketones Greater than 150 mg/dL (Negative) A 12/06/19 11:30 Urine Blood Negative (Negative) 12/06/19 11:30 Urine Nitrite Negative (Negative) 12/06/19 11:30 Ur Leukocyte Esterase Negative Maribel/uL (Negative) 12/06/19 11:30 Urine RBC 0-3 HPF (0-3) 12/06/19 11:30 Urine WBC 0-3 HPF (0-3) 12/06/19 11:30 Ur Squamous Epith Cells 0-3 HPF (0-3) 12/06/19 11:30 Urine Bacteria None Seen HPF (None Seen) 12/06/19 11:30 Hospitalist H&P A/P - Plan Plan: CT abdomen: mild wall thickening to colon This is a 79 year old female with history of hypothyroidism who presented to the hospital with abdominal pain, admitted for colitis Colitis - noted on CT abdomen .Will start Cipro and flagyl - vitals are stable - will advance to clear liquid diet and see if she tolerates Hypokalemia - potassium 2.7. Will repeat BMP. S/p IV and oral potassium Hyponatremia -sodium 134 Hypothyroidism - continue levothyroxine Code status: full code
[2019-12-06] MEDS ORDERED: Simethicone Chewable 80 MG TAB PO PRN (17:19)
[2019-12-06] MEDS ORDERED: Calcium Carbonate 500 MG ChewTAB PO PRN (17:19)
--- NOTE | 2019-12-06 17:24 | PDOC.FMACP ---
Advance Care Planning - Note Participants: patient Summary: Advanced Care Planning was discussed. The diagnosis, prognosis and goals of care were discussed. Appropriate forms and documentation to accomplish the goals of care were discussed. All questions were answered. The Palliative Care Team will be engaged to assist with completion of any outstanding forms that are needed. Discussed with patient that she wants to be full code
[2019-12-06 18:08] LABS: Anion Gap 18 mmol/L (10-20); BUN (Urea Nitrogen) 10 mg/dL (9.8-20.1); Calc. Creatinine Clearance 54 mL/min (70-130); Calcium 7.9 mg/dL (7.8-10.44); Carbon Dioxide 17 mmol/L (23-31); Chloride 104 mmol/L (98-107); Estimated GFR-MDRD 88; Glucose 81 mg/dL (83-110); Potassium 3.8 mmol/L (3.5-5.1); Sodium 135 mmol/L (136-145)
[2019-12-06] MEDS ORDERED: carBAMazepine 200 MG TAB PO SCH (21:00)
[2019-12-07] MEDS: Acetaminophen 325 MG TAB PO PRN ×3 (00:58→22:59)
[2019-12-07] MEDS: NS 0.9% w/ 40 MEQ KCL 1,000 ML IV SCH ×2 (05:17→15:59)
[2019-12-07] MEDS: Levothyroxine Sodium 50 MCG TAB PO SCH (05:17)
[2019-12-07] MEDS ORDERED: carBAMazepine 200 MG TAB PO SCH ×2 (09:00→17:00)
[2019-12-07] MEDS: metroNIDAZOLE 500 MG in Premix Bag 1 BAG IVPB SCH ×2 (14:16→20:33)
[2019-12-07] MEDS: Vancomycin HCl 25 MG/ML Oral PO SCH ×2 (15:50→20:34)
--- NOTE | 2019-12-07 16:19 | PDOC.HOSPP ---
- Subjective Encounter Date: 12/07/19 Encounter Time: 10:00 Subjective: The patient states she feels about the same. Still has indigestion. She says her stools are watery again and she has been having liquid stools every hour She has not eaten much - Objective Vital Signs & Weight: Vital Signs (12 hours) Temp Pulse Resp BP Pulse Ox 12/07/19 12:28 99.8 F H 114 H 16 105/67 98 12/07/19 07:22 99.6 F 107 H 18 94/61 92 L Weight Admit Weight 103 lb 14.4 oz Weight 103 lb 14.4 oz I&O: 12/06/19 12/07/19 12/08/19 06:59 06:59 06:59 Intake Total 1979 Balance 1979 Result Diagrams: 12/06/19 09:49 12/06/19 17:40 Hospitalist ROS - Review of Systems Constitutional: denies: fever, chills - Medication Medications: Active Medications Generic Name Dose Route Start Last Admin Trade Name Freq PRN Reason Stop Dose Admin Acetaminophen 650 mg 12/07/19 00:38 12/07/19 15:07 Tylenol PO 650 mg Q4H PRN Administration Headache/Fever/Mild Pain (1-3) Carbamazepine 200 mg 12/07/19 09:00 12/07/19 10:09 Tegretol PO Not Given DAILY DYLON Metronidazole 500 mg/ Device 100 mls @ 100 mls/hr 12/07/19 12:00 12/07/19 14: 16 IVPB 100 mls 0400,1200,2000 DYLON Administration Ciprofloxacin/Dextrose 400 mg/ 200 mls @ 200 mls/hr 12/07/19 11:00 12/07/19 12:23 Device IVPB 200 mls 1100,2300 DYLON Administration Levothyroxine Sodium 50 mcg 12/07/19 06:00 12/07/19 05:17 Synthroid PO 50 mcg 0600 DYLON Administration Vancomycin HCl 125 mg 12/07/19 15:00 12/07/19 15:50 First Vancomycin PO 125 mg 0300,0900,1500,2100 DYLON Administration - Exam General Appearance: NAD, awake alert Eye: PERRL, anicteric sclera ENT: normocephalic atraumatic, no oropharyngeal lesions Neck: supple, symmetric, no JVD, no thyromegaly Heart: RRR, no murmur, no gallops, no rubs Respiratory: CTAB, no wheezes, no rales, no ronchi Gastrointestinal: soft, non-distended, normal bowel sounds, no hepatomegaly Gastrointestinal - other findings: RLQ and LLQ tenderness Extremities: no cyanosis, no clubbing, no edema Skin: normal turgor, no lesions, no rashes Neurological: cranial nerve grossly intact, normal sensation to touch, no focal deficits, no new deficit Musculoskeletal: normal tone, normal strength, no muscle wasting Hosp A/P - Plan This is 79 year old female who presented with colitis #C diff colitis #Persistent diarrhea - started on cipro and flagyl empirically based of CT scan results - C diff positive, will start oral vancomycin - crypto/giardia negative. Send stool for E coli and shiga toxin Sinus tachycardia - continue IV fluids Hypokalemia - resolved
[2019-12-07 16:29] LABS: Anion Gap 11 mmol/L (10-20); BUN (Urea Nitrogen) 5 mg/dL (9.8-20.1); Calc. Creatinine Clearance 57 mL/min (70-130); Calcium 7.2 mg/dL (7.8-10.44); Carbon Dioxide 18 mmol/L (23-31); Chloride 109 mmol/L (98-107); Estimated GFR-MDRD Greater than 90; Glucose 111 mg/dL (83-110); Sodium 134 mmol/L (136-145)
[2019-12-07] MEDS: Sodium Chloride 0.9% 1,000 ML IV SCH ×2 (16:51→20:34)
[2019-12-08] MEDS: metroNIDAZOLE 500 MG in Premix Bag 1 BAG IVPB SCH ×3 (03:56→19:58)
[2019-12-08] MEDS: Vancomycin HCl 25 MG/ML Oral PO SCH ×4 (03:56→19:58)
[2019-12-08] MEDS: Levothyroxine Sodium 50 MCG TAB PO SCH (06:25)
--- NOTE | 2019-12-08 16:10 | PDOC.HOSPP ---
- Subjective Encounter Date: 12/08/19 Encounter Time: 10:00 Subjective: THe patient continues to have loose stools every hour. SHe has poor appetite still, is tolerating clear liquid some SHe still has indigestion - Objective Vital Signs & Weight: Vital Signs (12 hours) Temp Pulse Resp BP BP Pulse Ox 12/08/19 08:00 97 12/08/19 07:12 98.4 F 96 20 94/59 L 97 12/08/19 04:21 98.0 F 97 20 92/57 L 95 Weight Admit Weight 103 lb 14.4 oz Weight 103 lb 14.4 oz I&O: 12/07/19 12/08/19 12/09/19 06:59 06:59 06:59 Intake Total 1979 1200 560 Balance 1979 1200 560 Result Diagrams: 12/06/19 09:49 12/07/19 15:59 Hospitalist ROS - Review of Systems Constitutional: denies: fever, chills - Medication Medications: Active Medications Generic Name Dose Route Start Last Admin Trade Name Freq PRN Reason Stop Dose Admin Acetaminophen 650 mg 12/07/19 00:38 12/07/19 22:59 Tylenol PO 650 mg Q4H PRN Administration Headache/Fever/Mild Pain (1-3) Metronidazole 500 mg/ Device 100 mls @ 100 mls/hr 12/07/19 12:00 12/08/19 12: 46 IVPB 100 mls 0400,1200,2000 DYLON Administration Ciprofloxacin/Dextrose 400 mg/ 200 mls @ 200 mls/hr 12/07/19 11:00 12/08/19 11:21 Device IVPB 200 mls 1100,2300 DYLON Administration Sodium Chloride 1,000 mls @ 100 mls/hr 12/07/19 16:30 12/07/19 20:34 Normal Saline 0.9% IV 1,000 mls .Q10H DYLON Administration Levothyroxine Sodium 50 mcg 12/07/19 06:00 12/08/19 06:25 Synthroid PO 50 mcg 0600 DYLON Administration Vancomycin HCl 125 mg 12/07/19 15:00 12/08/19 14:54 First Vancomycin PO 125 mg 0300,0900,1500,2100 DYLON Administration - Exam General Appearance: NAD, awake alert Eye: PERRL, anicteric sclera ENT: normocephalic atraumatic, no oropharyngeal lesions Neck: supple, no JVD Heart: RRR, no murmur, no gallops, no rubs Respiratory: CTAB, no wheezes, no rales, no ronchi Gastrointestinal: soft Gastrointestinal - other findings: RLQ and LLQ tenderness Extremities: no cyanosis, no clubbing, no edema Skin: normal turgor, no lesions, no rashes Hosp A/P - Plan This is 79 year old female who presented with colitis #C diff colitis #Persistent diarrhea - started on cipro and flagyl empirically based of CT scan results. Will d/c cipro - continue IV flagyl - C diff positive continue oral vancomycin, will increase dose - crypto/giardia negative. Shiga and E coli negative Sinus tachycardia - continue IV fluids Hypokalemia - resolved
[2019-12-08] MEDS ORDERED: Vancomycin HCl 25 MG/ML Oral PO SCH (16:15)
[2019-12-08] MEDS: carBAMazepine 200 MG TAB PO SCH (16:35)
[2019-12-08] MEDS: Sodium Chloride 0.9% 1,000 ML IV SCH ×2 (18:23→20:54)
[2019-12-08] MEDS: Acetaminophen 325 MG TAB PO PRN (19:57)
[2019-12-09] MEDS: metroNIDAZOLE 500 MG in Premix Bag 1 BAG IVPB SCH ×3 (03:01→20:22)
[2019-12-09] MEDS: Vancomycin HCl 25 MG/ML Oral PO SCH (03:01)
[2019-12-09] MEDS: Sodium Chloride 0.9% 1,000 ML IV SCH ×2 (05:59→17:33)
[2019-12-09] MEDS: Levothyroxine Sodium 50 MCG TAB PO SCH (05:59)
--- NOTE | 2019-12-09 07:47 | PDOC.HOSPP ---
- Subjective Encounter Date: 12/09/19 Encounter Time: 07:46 Subjective: The patient states that she still had diarrhea every two hours. She states she was unable to tolerate the higher dose of vancomycin because she cannot take in that much liquid at a time due to indigestion and nausea. She would prefer a tablet form however no tablet form present here She has no significant abdominal pain. She does have some nausea - Objective Vital Signs & Weight: Vital Signs (12 hours) Temp Pulse Resp BP Pulse Ox 12/09/19 07:11 98.0 F 85 20 114/69 98 12/08/19 20:00 96 Weight Admit Weight 103 lb 14.4 oz Weight 103 lb 14.4 oz I&O: 12/08/19 12/09/19 12/10/19 06:59 06:59 06:59 Intake Total 1200 1680 Balance 1200 1680 Result Diagrams: 12/06/19 09:49 12/07/19 15:59 Hospitalist ROS - Review of Systems Constitutional: denies: fever, chills - Medication Medications: Active Medications Generic Name Dose Route Start Last Admin Trade Name Freq PRN Reason Stop Dose Admin Acetaminophen 650 mg 12/07/19 00:38 12/08/19 19:57 Tylenol PO 650 mg Q4H PRN Administration Headache/Fever/Mild Pain (1-3) Carbamazepine 200 mg 12/08/19 16:00 12/08/19 16:35 Tegretol PO 200 mg 1600 DYLON Administration Metronidazole 500 mg/ Device 100 mls @ 100 mls/hr 12/07/19 12:00 12/09/19 03: 01 IVPB 100 mls 0400,1200,2000 DYLON Administration Sodium Chloride 1,000 mls @ 100 mls/hr 12/07/19 16:30 12/09/19 05:59 Normal Saline 0.9% IV 1,000 mls .Q10H DYLNO Administration Levothyroxine Sodium 50 mcg 12/07/19 06:00 12/09/19 05:59 Synthroid PO 50 mcg 0600 DYLON Administration - Exam General Appearance: NAD, awake alert Eye: PERRL, anicteric sclera ENT: normocephalic atraumatic, no oropharyngeal lesions Neck: no JVD Heart: RRR, no murmur, no gallops, no rubs Respiratory: CTAB, no wheezes, no rales, no ronchi, normal percussion Gastrointestinal: soft, non-tender, non-distended Gastrointestinal - other findings: hypoactive bowel sounds. Mild RLQ tenderness Extremities: no cyanosis, no clubbing, no edema Skin: normal turgor, no lesions, no rashes Neurological: cranial nerve grossly intact, normal sensation to touch, no focal deficits, no new deficit Hosp A/P - Plan This is 79 year old female who presented with colitis #C diff colitis #Persistent diarrhea - started on cipro and flagyl empirically based of CT scan results. - cipro discontinued 12/07 due to negative stool bacterial cultures. Ova and parasite negative - oral vancomycin increased to 250 mg q6 due to severe diarrhea, however patient has nausea with this - will add zofran prn for nausea - continue IV flagyl - ID consult, consider fidaxomicin if no response to vancomycin? - continue full liquid diet, if nausea improves will consider advancing to regular diet Sinus tachycardia - continue IV fluids Hypokalemia - resolved
[2019-12-09] MEDS ORDERED: Ondansetron PF 4 MG/2 ML Vial IVP PRN (07:48)
[2019-12-09 08:34] LABS: Hemoglobin 12.1 g/dL (12.0-16.0); Mean Corpuscular HGB CONC 34.8 g/dL (32.0-36.0); Mean Corpuscular Hemoglobin 31.1 pg (27.0-31.0); Mean Corpuscular Volume 89.5 fL (78.0-98.0); Mean Platelet Volume 6.8 fL (7.4-10.4); Platelet Count 325 thou/uL (130-400); RBC Distribution Width 13.1 % (11.5-14.5); White Blood Cell (WBC) Count 8.5 thou/uL (4.8-10.8)
[2019-12-09 08:49] LABS: Anion Gap 13 mmol/L (10-20); BUN (Urea Nitrogen) Less than 4 mg/dL (9.8-20.1); Calc. Creatinine Clearance 75 mL/min (70-130); Carbon Dioxide 17 mmol/L (23-31); Chloride 107 mmol/L (98-107); Estimated GFR-MDRD Greater than 90; Glucose 85 mg/dL (83-110); Magnesium 1.6 mg/dL (1.6-2.6); Sodium 134 mmol/L (136-145)
[2019-12-09] MEDS ORDERED: Vancomycin HCl 25 MG/ML Oral PO SCH (09:00)
[2019-12-09 09:04] LABS: Phosphorus 1.7 mg/dL (2.3-4.7)
[2019-12-09 09:05] LABS: Potassium 2.8 mmol/L (3.5-5.1)
[2019-12-09] MEDS ORDERED: Sodium Phosphate 15 MMOL in Sodium Chloride 0.9% 250 ML 250 ML IVPB SCH (12:00)
[2019-12-09] MEDS ORDERED: Magnesium 2 GM/50 ML 2 GM in Premix Bag 1 BAG IVPB SCH (12:45)
[2019-12-09] MEDS: Potassium Chloride 20 MEQ in Premix Bag 1 BAG IVPB SCH ×2 (13:09→15:08)
[2019-12-09] MEDS: Acetaminophen 325 MG TAB PO PRN (15:07)
[2019-12-09] MEDS: carBAMazepine 200 MG TAB PO SCH (17:32)
[2019-12-09] MEDS: Fidaxomicin 200 MG TAB PO SCH (20:36)
[2019-12-10] MEDS: Acetaminophen 325 MG TAB PO PRN ×2 (01:26→15:53)
[2019-12-10] MEDS: Sodium Chloride 0.9% 1,000 ML IV SCH ×2 (01:30→15:54)
[2019-12-10] MEDS: metroNIDAZOLE 500 MG in Premix Bag 1 BAG IVPB SCH (05:15)
[2019-12-10] MEDS: Levothyroxine Sodium 50 MCG TAB PO SCH (05:16)
--- NOTE | 2019-12-10 06:48 | CON ---
DATE OF CONSULTATION: 12/09/2019 REASON FOR CONSULTATION: C difficile colitis with delayed improvement. HISTORY OF PRESENT ILLNESS: This is a 79-year-old with a history of hypothyroidism, trigeminal neuralgia, who a few days before admission was given a prescription for amoxicillin by another doctor for possible sinusitis or an alternate diagnosis. It is not clear from her history what was the motive for the prescription. The patient developed nausea and diarrhea, which has persisted for the past week. She was admitted and C diff test was positive. The initial findings included BP 102/70, pulse 113, temperature 98.5, and O2 sat 97. Neck was supple. Lungs were clear. Abdomen showed tenderness in the left lower quadrant some distention. Other findings on admission included a white cell count of 7.1, hemoglobin of 13, and platelets of 303 with 80% neutrophils. Sodium 134, creatinine 0.66, and albumin 3.2. Urinalysis was essentially normal. The patient had a positive C diff on arrival both for antigen and toxin. Stool lactoferrin was elevated, had an E coli 0157 assay performed, a campylobacter antigen assay and shiga toxin test, which was negative for both. The patient was given vancomycin and then Flagyl and continues to feel diarrhea, uncomfortable, nauseated. She is having a hard time tolerating the vancomycin, that makes her very nauseated. Mild headaches. No visual symptoms, sore throat, odynophagia or dysphagia. No cough, sputum production or chest pain. She has abdominal tenderness in the right lower quadrant and left lower quadrant. Voiding without difficulty. No joint symptoms. No neurological symptoms. PAST MEDICAL HISTORY: Hypothyroidism, some form of cardiac arrhythmia, and trigeminal neuralgia. SOCIAL HISTORY: Lives in the area by herself. Never smoker. ALLERGIES: TO CEPHALOSPORINS, IODINE, LATEX, AND SULFA DRUGS. FAMILY HISTORY: Noncontributory. CURRENT MEDICATIONS: She had been on vancomycin and Flagyl intravenously. PHYSICAL EXAMINATION: GENERAL: Awake, alert, appears in some distress from nausea. SKIN: Normal. There is no lymphadenopathy. HEENT: Ocular movements conjugate. Oral cavity normal. NECK: Supple. LUNGS: Symmetric. Clear breath sounds. HEART: S1 and S2. Regular rate. No S3 or S4. ABDOMEN: Soft with mild tenderness in the right and left lower quadrants. No bladder distention. MUSCULOSKELETAL: No joint inflammatory activity. Moves extremities equally. NEUROLOGIC: Cognitive function appears to be intact. FOLLOWUP LABS: White cell count 8.5, hemoglobin 12, and platelets 325. Creatinine 0.47. Phosphorus 1.7. DIAGNOSTIC DATA: Abdomen and pelvis CT with mild wall thickening of the colon, potentially colitis. No pneumatosis noted. Fairly diffuse process, perhaps more on the left side. ASSESSMENT: Hypothyroidism and colitis with Clostridium difficile positive antigen, toxin test and stool with lack of clear-cut improvement despite oral vancomycin. DISCUSSION: The dose of oral vancomycin is enough to lead to resolution of this process, but the patient has a hard time tolerating the medication due to nausea , so I am going to switch her to fidaxomicin and see if she tolerates that better. Continue with the Flagyl for now. Job ID: [id number] MTDD
[2019-12-10] MEDS: Fidaxomicin 200 MG TAB PO SCH ×2 (09:03→21:29)
[2019-12-10 11:37] LABS: Hemoglobin 11.9 g/dL (12.0-16.0); Mean Corpuscular HGB CONC 34.6 g/dL (32.0-36.0); Mean Corpuscular Hemoglobin 31.1 pg (27.0-31.0); Mean Corpuscular Volume 89.7 fL (78.0-98.0); Mean Platelet Volume 6.9 fL (7.4-10.4); Platelet Count 327 thou/uL (130-400); RBC Distribution Width 13.3 % (11.5-14.5); Red Blood Cell (RBC) Count 3.84 mill/uL (4.20-5.40); White Blood Cell (WBC) Count 6.8 thou/uL (4.8-10.8)
[2019-12-10 12:05] LABS: Anion Gap 14 mmol/L (10-20); BUN (Urea Nitrogen) Less than 4 mg/dL (9.8-20.1); Calc. Creatinine Clearance 72 mL/min (70-130); Calcium 6.8 mg/dL (7.8-10.44); Carbon Dioxide 15 mmol/L (23-31); Chloride 108 mmol/L (98-107); Estimated GFR-MDRD Greater than 90; Glucose 73 mg/dL (83-110); Potassium 3.2 mmol/L (3.5-5.1); Sodium 134 mmol/L (136-145)
[2019-12-10] MEDS ORDERED: Potassium Chloride 20 MEQ TAB PO SCH (13:45)
[2019-12-10 13:58] LABS: Phosphorus 2.1 mg/dL (2.3-4.7)
[2019-12-10] MEDS: carBAMazepine 200 MG TAB PO SCH (15:54)
--- NOTE | 2019-12-10 16:52 | PDOC.HOSPP ---
- Subjective Encounter Date: 12/10/19 Encounter Time: 09:00 Subjective: The patient feels her diarrhea is slowing down . She has not eaten solid food yet. SHe was started on fidaxomicin by ID. She has not gotten out of bed yet and still feels weak. She would like to stay another day. Per nurse, she also doesn't have a ride - Objective Vital Signs & Weight: Vital Signs (12 hours) Temp Pulse Resp BP Pulse Ox 12/10/19 08:50 98.7 F 107 H 18 131/76 95 12/10/19 08:00 95 Weight Admit Weight 103 lb 14.4 oz Weight 103 lb 14.4 oz I&O: 12/09/19 12/10/19 12/11/19 06:59 06:59 06:59 Intake Total 1680 Balance 1680 Result Diagrams: 12/10/19 11:29 12/10/19 11:29 Hospitalist ROS - Review of Systems Constitutional: denies: fever, chills - Medication Medications: Active Medications Generic Name Dose Route Start Last Admin Trade Name Freq PRN Reason Stop Dose Admin Acetaminophen 650 mg 12/07/19 00:38 12/10/19 15:53 Tylenol PO 650 mg Q4H PRN Administration Headache/Fever/Mild Pain (1-3) Carbamazepine 200 mg 12/08/19 16:00 12/10/19 15:54 Tegretol PO 200 mg 1600 DYLON Administration Fidaxomicin 200 mg 12/09/19 21:00 12/10/19 09:03 Dificid PO 12/19/19 09:01 200 mg BID DYLON Administration Sodium Chloride 1,000 mls @ 100 mls/hr 12/07/19 16:30 12/10/19 15:54 Normal Saline 0.9% IV 1,000 mls .Q10H DYLON Administration Levothyroxine Sodium 50 mcg 12/07/19 06:00 12/10/19 05:16 Synthroid PO 50 mcg 0600 DYLON Administration Sodium Chloride 10 ml 12/09/19 09:00 12/10/19 09:03 Flush - Normal Saline IVF Not Given Q12HR DYLON - Exam General Appearance: NAD, awake alert Eye: PERRL, anicteric sclera ENT: normocephalic atraumatic, no oropharyngeal lesions Neck: no JVD Heart: RRR, no murmur, no gallops, no rubs Respiratory: CTAB, no wheezes, no rales, no ronchi Gastrointestinal: soft, non-tender, non-distended, normal bowel sounds Extremities: no cyanosis, no clubbing, no edema Skin: normal turgor, no lesions, no rashes Neurological: cranial nerve grossly intact, normal sensation to touch, no focal deficits, no new deficit Hosp A/P - Plan This is 79 year old female who presented with colitis #C diff colitis #Persistent diarrhea - started on cipro and flagyl empirically based of CT scan results. - cipro discontinued 12/07 due to negative stool bacterial cultures. Ova and parasite negative - had no improvement with vancomycin and flagyl - ID consulted, started on fidaxomicin - will advance diet to regular diet Weakness - PT evaluation Hypokalemia - potassium 3.2, will replace Hypophosphatemia/Hypomagnesemia - Phos 2.1, mag 1.8, will monitor Sinus tachycardia - continue IV fluids Hypokalemia - resolved Dispo: likely d/c in am
--- NOTE | 2019-12-10 18:37 | PRG ---
DATE OF SERVICE: 12/10/2019 SUBJECTIVE: Feeling better, able to eat, less diarrhea, and tolerating the medication better than the vancomycin. OBJECTIVE: VITAL SINGS: Other vital signs are normal. GENERAL: Awake, alert, and oriented, still a little disheveled and not yet her baseline. HEART: S1 and S2. Regular rate. LUNGS: Clear. ABDOMEN: Soft, still with increased bowel sounds. LABORATORY DATA: White cell count 6.8, hemoglobin 11.9, and platelets are 327. ASSESSMENT AND DISCUSSION: Hypothyroidism and C difficile colitis with improvement now with fidaxomicin due to better tolerability compared with vancomycin, so continue a course of 10 days of fidaxomicin and hopefully discharge in a.m. or the day after. I told her that there was a 20% chance of recurrence and that retreatment would then be recommended and maybe even fecal matter transplant. Job ID: [id number]
[2019-12-11] MEDS: Sodium Chloride 0.9% 1,000 ML IV SCH ×3 (00:30→17:10)
[2019-12-11 05:48] LABS: Hemoglobin 11.4 g/dL (12.0-16.0); Mean Corpuscular HGB CONC 33.6 g/dL (32.0-36.0); Mean Corpuscular Hemoglobin 30.2 pg (27.0-31.0); Mean Corpuscular Volume 89.9 fL (78.0-98.0); Mean Platelet Volume 6.8 fL (7.4-10.4); Platelet Count 319 thou/uL (130-400); RBC Distribution Width 13.4 % (11.5-14.5); Red Blood Cell (RBC) Count 3.77 mill/uL (4.20-5.40); White Blood Cell (WBC) Count 6.3 thou/uL (4.8-10.8)
[2019-12-11 05:59] LABS: Anion Gap 13 mmol/L (10-20); BUN (Urea Nitrogen) Less than 4 mg/dL (9.8-20.1); Calc. Creatinine Clearance 78 mL/min (70-130); Calcium 6.6 mg/dL (7.8-10.44); Carbon Dioxide 15 mmol/L (23-31); Chloride 109 mmol/L (98-107); Estimated GFR-MDRD Greater than 90; Glucose 76 mg/dL (83-110); Magnesium 1.7 mg/dL (1.6-2.6); Potassium 3.3 mmol/L (3.5-5.1); Sodium 134 mmol/L (136-145)
[2019-12-11] MEDS: Levothyroxine Sodium 50 MCG TAB PO SCH (06:43)
[2019-12-11] MEDS: Fidaxomicin 200 MG TAB PO SCH ×2 (08:51→20:11)
[2019-12-11] MEDS ORDERED: Potassium Chloride 20 MEQ TAB PO SCH (09:00)
[2019-12-11] MEDS: carBAMazepine 200 MG TAB PO SCH (15:47)
--- NOTE | 2019-12-11 16:33 | PDOC.HOSPP ---
- Subjective Encounter Date: 12/11/19 Encounter Time: 09:30 Subjective: The patient states her diarrhea has improved. She had loose stool four times in the middle of the night. SHe ate a solid diet today with some eggs and sausage. SHe was seen by PT, they told her she needed a walker and recommended rehab. Patient agreeable. - Objective Vital Signs & Weight: Vital Signs (12 hours) Temp Pulse Resp BP Pulse Ox 12/11/19 07:12 98.8 F 104 H 18 121/69 94 L Weight Admit Weight 103 lb 14.4 oz Weight 103 lb 14.4 oz I&O: 12/10/19 12/11/19 12/12/19 06:59 06:59 06:59 Output Total 600 Balance -600 Result Diagrams: 12/11/19 05:16 12/11/19 05:16 Hospitalist ROS - Review of Systems Constitutional: denies: fever, chills - Medication Medications: Active Medications Generic Name Dose Route Start Last Admin Trade Name Freq PRN Reason Stop Dose Admin Acetaminophen 650 mg 12/07/19 00:38 12/10/19 15:53 Tylenol PO 650 mg Q4H PRN Administration Headache/Fever/Mild Pain (1-3) Carbamazepine 200 mg 12/08/19 16:00 12/11/19 15:47 Tegretol PO 200 mg 1600 DYLON Administration Fidaxomicin 200 mg 12/09/19 21:00 12/11/19 08:51 Dificid PO 12/19/19 09:01 200 mg BID DYLON Administration Sodium Chloride 1,000 mls @ 100 mls/hr 12/07/19 16:30 12/11/19 10:36 Normal Saline 0.9% IV Not Given .Q10H DYLON Levothyroxine Sodium 50 mcg 12/07/19 06:00 12/11/19 06:43 Synthroid PO 50 mcg 0600 DYLON Administration Sodium Chloride 10 ml 12/09/19 09:00 12/11/19 08:51 Flush - Normal Saline IVF 10 ml Q12HR DYLON Administration - Exam General Appearance: NAD, awake alert Eye: PERRL, anicteric sclera ENT: normocephalic atraumatic, no oropharyngeal lesions Neck: no JVD Heart: RRR, no murmur, no gallops, no rubs Respiratory: CTAB, no wheezes, no rales, no ronchi Gastrointestinal: soft, non-tender, non-distended, normal bowel sounds Extremities: no cyanosis, no clubbing, no edema Skin: normal turgor, no lesions, no rashes Neurological: cranial nerve grossly intact, normal sensation to touch, no focal deficits, no new deficit Musculoskeletal: normal tone, normal strength, no muscle wasting Hosp A/P - Plan This is 79 year old female who presented with colitis #C diff colitis #Persistent diarrhea - started on cipro and flagyl empirically based of CT scan results. - cipro discontinued 12/07 due to negative stool bacterial cultures. Ova and parasite negative - had no improvement with oral vancomycin and flagyl, sp infectious disease consulted, started on fidaxomicin with improvement - continue regular diet Hypocalcemia - corrected calcium 7.2 today. Will administer 1 gram calcium gluconate Hypokalemia - potassium 3.2, replaced. Weakness - PT evaluation and recommended rehab Sinus tachycardia - continue IV fluids. Reduce rate to 75 Hypophosphatemia/Hypomagnesemia-resolved Dispo: pending rehab placement
[2019-12-11] MEDS ORDERED: Calcium Gluconate 4.6 MEQ in Sodium Chloride 0.9% 100 ML IVPB SCH (16:34)
[2019-12-11] MEDS: Acetaminophen 325 MG TAB PO PRN (23:11)
[2019-12-12] MEDS: Levothyroxine Sodium 50 MCG TAB PO SCH (06:24)
[2019-12-12 06:43] LABS: Hemoglobin 11.7 g/dL (12.0-16.0); Mean Corpuscular HGB CONC 34.2 g/dL (32.0-36.0); Mean Corpuscular Hemoglobin 30.6 pg (27.0-31.0); Mean Corpuscular Volume 89.5 fL (78.0-98.0); Platelet Count 327 thou/uL (130-400); RBC Distribution Width 13.6 % (11.5-14.5); Red Blood Cell (RBC) Count 3.83 mill/uL (4.20-5.40); White Blood Cell (WBC) Count 5.2 thou/uL (4.8-10.8)
[2019-12-12 07:06] LABS: Anion Gap 12 mmol/L (10-20); BUN (Urea Nitrogen) Less than 4 mg/dL (9.8-20.1); Calc. Creatinine Clearance 78 mL/min (70-130); Calcium 6.9 mg/dL (7.8-10.44); Carbon Dioxide 19 mmol/L (23-31); Chloride 109 mmol/L (98-107); Estimated GFR-MDRD Greater than 90; Glucose 88 mg/dL (83-110); Potassium 3.1 mmol/L (3.5-5.1); Sodium 137 mmol/L (136-145)
[2019-12-12] MEDS: Sodium Chloride 0.9% 1,000 ML IV SCH ×2 (08:31→19:57)
[2019-12-12] MEDS: Fidaxomicin 200 MG TAB PO SCH ×2 (08:31→20:01)
[2019-12-12] MEDS ORDERED: Potassium Chloride 20 MEQ TAB PO SCH (10:15)
--- NOTE | 2019-12-12 11:00 | PDOC.HOSPP ---
- Subjective Encounter Date: 12/12/19 Subjective: The patient stated that her abdominal pain has improved. She had one bowel movement last night and one this morning, both of which were loose. - Objective Vital Signs & Weight: Vital Signs (12 hours) Temp Pulse Resp BP Pulse Ox 12/12/19 08:00 97 12/12/19 07:21 98.0 F 93 20 127/80 97 Weight Admit Weight 103 lb 14.4 oz Weight 103 lb 14.4 oz I&O: 12/11/19 12/12/19 12/13/19 06:59 06:59 06:59 Output Total 600 Balance -600 Result Diagrams: 12/12/19 06:02 12/12/19 06:02 Hospitalist ROS - Medication Medications: Active Medications Generic Name Dose Route Start Last Admin Trade Name Freq PRN Reason Stop Dose Admin Acetaminophen 650 mg 12/07/19 00:38 12/11/19 23:11 Tylenol PO 650 mg Q4H PRN Administration Headache/Fever/Mild Pain (1-3) Carbamazepine 200 mg 12/08/19 16:00 12/11/19 15:47 Tegretol PO 200 mg 1600 DYLON Administration Fidaxomicin 200 mg 12/09/19 21:00 12/12/19 08:31 Dificid PO 12/19/19 09:01 200 mg BID DYLON Administration Sodium Chloride 1,000 mls @ 75 mls/hr 12/11/19 16:35 12/12/19 08:31 Normal Saline 0.9% IV 1,000 mls .[id number] DYLON Administration Levothyroxine Sodium 50 mcg 12/07/19 06:00 12/12/19 06:24 Synthroid PO 50 mcg 0600 DYLON Administration Sodium Chloride 10 ml 12/09/19 09:00 12/12/19 08:32 Flush - Normal Saline IVF Not Given Q12HR DYLON - Exam General Appearance: awake alert ENT: normocephalic atraumatic Neck: supple Respiratory: normal chest expansion, no tachypnea Extremities: no cyanosis Skin: normal turgor Neurological: cranial nerve grossly intact, no focal deficits Hosp A/P - Plan 12/10: #C diff colitis #Persistent diarrhea - started on cipro and flagyl empirically based of CT scan results. - cipro discontinued 12/07 due to negative stool bacterial cultures. Ova and parasite negative - had no improvement with oral vancomycin and vicenta chakraborty infectious disease consulted, started on fidaxomicin with improvement - continue regular diet Hypocalcemia - corrected calcium 7.2 today. Will administer 1 gram calcium gluconate Hypokalemia - potassium 3.2, replaced. Weakness - PT evaluation and recommended rehab Sinus tachycardia - continue IV fluids. Reduce rate to 75 Hypophosphatemia/Hypomagnesemia-resolved 12/11: C. difficile colitis improving. No signs of sepsis. Replace potassium. Plan to discharge home with home health tomorrow to complete her course of fidaxomicin.
[2019-12-12] MEDS: Acetaminophen 325 MG TAB PO PRN (11:01)
[2019-12-12] MEDS: carBAMazepine 200 MG TAB PO SCH (17:13)
[2019-12-13] MEDS: Levothyroxine Sodium 50 MCG TAB PO SCH (05:42)
[2019-12-13] MEDS: Sodium Chloride 0.9% 1,000 ML IV SCH ×2 (05:42→21:55)
[2019-12-13 05:47] LABS: Hemoglobin 11.6 g/dL (12.0-16.0); Mean Corpuscular HGB CONC 34.9 g/dL (32.0-36.0); Mean Corpuscular Volume 88.9 fL (78.0-98.0); Mean Platelet Volume 6.6 fL (7.4-10.4); Platelet Count 303 thou/uL (130-400); RBC Distribution Width 13.4 % (11.5-14.5); Red Blood Cell (RBC) Count 3.73 mill/uL (4.20-5.40); White Blood Cell (WBC) Count 5.1 thou/uL (4.8-10.8)
[2019-12-13 06:11] LABS: Anion Gap 10 mmol/L (10-20); BUN (Urea Nitrogen) Less than 4 mg/dL (9.8-20.1); Calc. Creatinine Clearance 85 mL/min (70-130); Calcium 6.9 mg/dL (7.8-10.44); Carbon Dioxide 24 mmol/L (23-31); Chloride 105 mmol/L (98-107); Estimated GFR-MDRD Greater than 90; Glucose 91 mg/dL (83-110); Sodium 136 mmol/L (136-145)
[2019-12-13 06:19] LABS: Potassium 2.8 mmol/L (3.5-5.1)
[2019-12-13] MEDS: Potassium Chloride 20 MEQ in Premix Bag 1 BAG IVPB SCH ×2 (06:41→08:05)
[2019-12-13] MEDS: Fidaxomicin 200 MG TAB PO SCH ×2 (08:05→20:39)
[2019-12-13] MEDS ORDERED: Potassium Chloride 20 MEQ TAB PO SCH (10:15)
[2019-12-13] MEDS: carBAMazepine 200 MG TAB PO SCH (17:13)
[2019-12-14] MEDS: Acetaminophen 325 MG TAB PO PRN ×3 (01:07→22:38)
[2019-12-14 05:48] LABS: Hemoglobin 10.7 g/dL (12.0-16.0); Mean Corpuscular HGB CONC 35.2 g/dL (32.0-36.0); Mean Corpuscular Hemoglobin 31.4 pg (27.0-31.0); Mean Corpuscular Volume 89.2 fL (78.0-98.0); Mean Platelet Volume 6.8 fL (7.4-10.4); Platelet Count 266 thou/uL (130-400); RBC Distribution Width 13.5 % (11.5-14.5); Red Blood Cell (RBC) Count 3.42 mill/uL (4.20-5.40); White Blood Cell (WBC) Count 3.5 thou/uL (4.8-10.8)
[2019-12-14 06:02] LABS: Anion Gap 10 mmol/L (10-20); BUN (Urea Nitrogen) Less than 4 mg/dL (9.8-20.1); Calc. Creatinine Clearance 80 mL/min (70-130); Calcium 7.1 mg/dL (7.8-10.44); Carbon Dioxide 26 mmol/L (23-31); Chloride 105 mmol/L (98-107); Estimated GFR-MDRD Greater than 90; Glucose 92 mg/dL (83-110); Sodium 138 mmol/L (136-145)
[2019-12-14] MEDS: Levothyroxine Sodium 50 MCG TAB PO SCH (06:14)
[2019-12-14] MEDS: Fidaxomicin 200 MG TAB PO SCH ×2 (08:17→20:22)
[2019-12-14] MEDS: Sodium Chloride 0.9% 1,000 ML IV SCH (11:30)
[2019-12-14] MEDS: carBAMazepine 200 MG TAB PO SCH ×2 (15:24→20:22)
[2019-12-15] MEDS: Levothyroxine Sodium 50 MCG TAB PO SCH (06:27)
[2019-12-15] MEDS: Fidaxomicin 200 MG TAB PO SCH (07:58)
--- NOTE | 2019-12-15 15:03 | PDOC.HOSPP ---
- Subjective Encounter Date: 12/15/19 - Objective Vital Signs & Weight: Vital Signs (12 hours) Temp Pulse Resp BP Pulse Ox 12/15/19 08:00 93 L 12/15/19 07:21 98.4 F 93 18 132/80 93 L Weight Admit Weight 103 lb 14.4 oz Weight 103 lb 14.4 oz I&O: 12/14/19 12/15/19 12/16/19 06:59 06:59 06:59 Intake Total 720 Balance 720 Result Diagrams: 12/14/19 05:14 12/14/19 05:14 Hospitalist ROS - Medication Medications: Active Medications Generic Name Dose Route Start Last Admin Trade Name Freq PRN Reason Stop Dose Admin Acetaminophen 650 mg 12/07/19 00:38 12/14/19 22:38 Tylenol PO 650 mg Q4H PRN Administration Headache/Fever/Mild Pain (1-3) Carbamazepine 200 mg 12/14/19 21:00 12/14/19 20:22 Tegretol PO 200 mg HS DYLON Administration Fidaxomicin 200 mg 12/09/19 21:00 12/15/19 07:58 Dificid PO 12/19/19 09:01 200 mg BID DYLON Administration Levothyroxine Sodium 50 mcg 12/07/19 06:00 12/15/19 06:27 Synthroid PO 50 mcg 0600 DYLON Administration Hosp A/P - Plan 12/10: #C diff colitis #Persistent diarrhea - started on cipro and flagyl empirically based of CT scan results. - cipro discontinued 12/07 due to negative stool bacterial cultures. Ova and parasite negative - had no improvement with oral vancomycin and flagyl, sp infectious disease consulted, started on fidaxomicin with improvement - continue regular diet Hypocalcemia - corrected calcium 7.2 today. Will administer 1 gram calcium gluconate Hypokalemia - potassium 3.2, replaced. Weakness - PT evaluation and recommended rehab Sinus tachycardia - continue IV fluids. Reduce rate to 75 Hypophosphatemia/Hypomagnesemia-resolved 12/14: C. difficile colitis improving. No signs of sepsis. Replace potassium. Continue Fidoxamycin. Pending rehab placement.
[2019-12-15] MEDS: Acetaminophen 325 MG TAB PO PRN (17:02)
[2019-12-15] MEDS: carBAMazepine 200 MG TAB PO SCH (19:17)
[2019-12-15 19:28] VITALS: BP 142/77; TEMP 98.1
--- NOTE | 2019-12-16 05:45 | DIS ---
DATE OF ADMISSION: 12/07/2019 DATE OF DISCHARGE: 12/15/2019 DISCHARGE DIAGNOSES: 1. Clostridium difficile colitis. 2. Hypocalcemia. 3. Hypokalemia. 4. Generalized weakness. 5. Hypophosphatemia. 6. Hypomagnesemia. 7. Sinus tachycardia. DISCHARGE MEDICATIONS: 1. Fidaxomicin 200 mg orally twice daily for 6 days. 2. Potassium chloride 20 mEq orally daily for 3 days. 3. Levothyroxine 50 mcg orally daily. 4. Carbamazepine 200 mg orally twice daily. 5. Metoprolol succinate 25 mg orally daily. HISTORY OF PRESENT ILLNESS AND HOSPITAL COURSE: The patient is a 79-year-old female with past medical history of hypothyroidism, trigeminal neuralgia, who presented to the hospital with complaints of nausea and diarrhea that have been persistent for a week. The patient did receive antibiotic for sinusitis prior to the start of her diarrhea. The antibiotic was Augmentin. Upon presentation to the ER, the patient was clinically dehydrated and was placed in the hospital for further evaluation. Her stool C diff toxin test came back positive. The patient was started on vancomycin and Flagyl, but she was unable to tolerate these antibiotics. ID consult was obtained, and the patient was started on fidaxomicin, which she tolerated well and completed 4 days of therapy prior to discharge. At discharge, the patient's diarrhea had improved dramatically. She will continue 6 more days of fidaxomicin at the rehab facility. Job ID: [id number]
== END 2019-12-15 19:25 | DRG 372 ==
LOC: ERS 09:15 → T4-A 15:41 → OBSVTOIN 12-07 16:17
PROVIDERS: ADMIT Internal Medicine; ATTEND Internal Medicine
DX: A04.72 Enterocolitis due to Clostridium difficile, not specified as recurrent (principal); E87.1 Hypo-osmolality and hyponatremia; E03.9 Hypothyroidism, unspecified; G50.0 Trigeminal neuralgia; E87.6 Hypokalemia; E86.0 Dehydration; R00.0 Tachycardia, unspecified; E83.39 Other disorders of phosphorus metabolism; E83.42 Hypomagnesemia; E83.51 Hypocalcemia; Z79.890 Hormone replacement therapy; Z90.49 Acquired absence of other specified parts of digestive tract; Z86.73 Personal history of transient ischemic attack (TIA), and cerebral infarction without residual deficits; Z88.2 Allergy status to sulfonamides; Z88.8 Allergy status to other drugs, medicaments and biological substances; Z88.1 Allergy status to other antibiotic agents; Z91.040 Latex allergy status; Z79.899 Other long term (current) drug therapy; Z91.041 Radiographic dye allergy status
CPT/HCPCS: 36415; 74177; 80048; 80053; 81003; 81015; 83605; 83630; 83690; 83735; 84100; 85025; 85027; 87045; 87046; 87324; 87328; 87329; 87427; 87449; 96361; 96365; 96366; 96375; G0378; J0744; J1200; J2920; J3475; J3480; J3490; J7050; Q9967; S0028

== ENCOUNTER 2020-08-25 00:03 | Emergency (ER) | payer MEDICARE, BC | END 2020-08-25 01:22 | disposition home or self-care (01) | LOC: ERS 00:03 | DX: L50.0 Allergic urticaria (principal); E03.9 Hypothyroidism, unspecified | CPT/HCPCS: 99282 ==

== ENCOUNTER 2021-05-10 15:16 | Emergency (ER) | payer MEDICARE, BC ==
[2021-05-10 16:26] LABS: #Lymphocytes 0.6 thou/uL (1.20-3.40); #Monocytes 0.7 thou/uL (0.11-0.59); #Neutrophils 8.5 thou/uL (1.40-6.50); %Eosinophils 0.3 % (0.0-10.0); %Lymphocytes 5.7 % (21.0-51.0); %Monocytes 7.1 % (0.0-10.0); Hemoglobin 12.4 g/dL (12.0-16.0); Mean Corpuscular HGB CONC 34.7 g/dL (32.0-36.0); Mean Corpuscular Hemoglobin 31.9 pg (27.0-31.0); Mean Corpuscular Volume 91.9 fL (78.0-98.0); Mean Platelet Volume 6.1 fL (7.4-10.4); Platelet Count 235 thou/uL (130-400); RBC Distribution Width 11.7 % (11.5-14.5); White Blood Cell (WBC) Count 9.7 thou/uL (4.8-10.8)
[2021-05-10 16:47] LABS: SARS-CoV-2 NAA Rapid Test Not Detected (NotDetected)
[2021-05-10 16:48] LABS: ALT (SGPT) 9 U/L (8-55); AST (SGOT) 17 U/L (5-34); Albumin 3.9 g/dL (3.4-4.8); Alkaline Phosphatase 81 U/L (40-110); Anion Gap 14 mmol/L (10-20); BUN (Urea Nitrogen) 11 mg/dL (9.8-20.1); Bilirubin, Total 0.4 mg/dL (0.2-1.2); Calc. Creatinine Clearance 0 mL/min (70-130); Calcium 8.3 mg/dL (7.8-10.44); Carbon Dioxide 24 mmol/L (23-31); Chloride 96 mmol/L (98-107); Globulin 2.5 g/dL (2.4-3.5); Glucose 99 mg/dL (83-110); Potassium 3.7 mmol/L (3.5-5.1); Protein, Total 6.4 g/dL (5.8-8.1); Sodium 130 mmol/L (136-145)
[2021-05-10] MEDS ORDERED: Acetaminophen 500 MG TAB ONE (18:02)
== END 2021-05-10 18:10 | disposition home or self-care (01) ==
LOC: ERS 15:16
DX: R50.9 Fever, unspecified (principal); Z20.822 Contact with and (suspected) exposure to COVID-19; Z86.73 Personal history of transient ischemic attack (TIA), and cerebral infarction without residual deficits; Z79.899 Other long term (current) drug therapy
CPT/HCPCS: 0240U; 71046; 80053; 83605; 85025; 36415

== ENCOUNTER 2021-11-17 14:09 | Inpatient (IN) | payer MEDICARE, BC ==
[2021-11-17] MEDS ORDERED: Dexamethasone 10 MG/ML VIAL ONE (14:44)
[2021-11-17] MEDS ORDERED: Metoclopramide HCl 10 MG/2 ML VIAL ONE (14:44)
[2021-11-17] MEDS ORDERED: diphenhydrAMINE 50 MG/ML VIAL ONE (14:45)
[2021-11-17 15:09] LABS: #Lymphocytes 0.9 thou/uL (1.20-3.40); #Monocytes 0.7 thou/uL (0.11-0.59); #Neutrophils 5.8 thou/uL (1.40-6.50); %Basophils 0.3 % (0.0-1.0); %Eosinophils 0.3 % (0.0-10.0); %Lymphocytes 11.5 % (21.0-51.0); %Monocytes 9.1 % (0.0-10.0); %Neutrophils 78.7 % (42.0-75.0); Hemoglobin 12.9 g/dL (12.0-16.0); Mean Corpuscular HGB CONC 34.2 g/dL (32.0-36.0); Mean Corpuscular Hemoglobin 32.4 pg (27.0-31.0); Mean Corpuscular Volume 94.7 fL (78.0-98.0); Mean Platelet Volume 5.9 fL (7.4-10.4); Platelet Count 203 thou/uL (130-400); RBC Distribution Width 11.4 % (11.5-14.5); Red Blood Cell (RBC) Count 3.98 mill/uL (4.20-5.40); White Blood Cell (WBC) Count 7.4 thou/uL (4.8-10.8)
[2021-11-17 15:33] LABS: Bacteria/HPF None Seen HPF (None Seen); Bilirubin Negative (Negative); Blood, Urine Negative (Negative); Clarity Clear (Clear); Glucose, Urine (Dipstick) Normal (Negative); Ketone, Urine 20 mg/dL (Negative); Leukocyte 25 Leu/uL (Negative); Nitrite Negative (Negative); Protein, Urine (Dipstick) Negative (Neg-Trace); RBC/HPF 0-3 HPF (0-3); Specific Gravity, Urine 1.012 (1.002-1.036); Squamous Epithelial 0-3 HPF (0-3); Urobilinogen Normal mg/dL (Less than 2)
[2021-11-17 15:33] LABS: ALT (SGPT) 12 U/L (8-55); AST (SGOT) 41 U/L (5-34); Alkaline Phosphatase 62 U/L (40-110); Anion Gap 14 mmol/L (10-20); BUN (Urea Nitrogen) 11 mg/dL (9.8-20.1); Bilirubin, Total 0.3 mg/dL (0.2-1.2); Calc. Creatinine Clearance 0 mL/min (70-130); Calcium 8.7 mg/dL (7.8-10.44); Carbon Dioxide 24 mmol/L (23-31); Chloride 100 mmol/L (98-107); Globulin 2.1 g/dL (2.4-3.5); Glucose 76 mg/dL (83-110); Potassium 3.9 mmol/L (3.5-5.1); Protein, Total 6.1 g/dL (5.8-8.1); Sodium 134 mmol/L (136-145)
[2021-11-17] MEDS ORDERED: Enoxaparin Sodium 60 MG/0.6 ML SYRINGE ONE (16:01)
[2021-11-17] MEDS ORDERED: Aspirin Chewable 81 MG TAB ONE (16:01)
[2021-11-17 16:07] LABS: CKMB 16.6 ng/mL (0-6.6)
[2021-11-17] MEDS ORDERED: Senokot S 8.6-50 MG TAB PO PRN (18:04)
[2021-11-17] MEDS ORDERED: Bisacodyl 5 MG TAB PO PRN (18:04)
[2021-11-17] MEDS ORDERED: Ondansetron PF 4 MG/2 ML Vial IVP PRN (18:04)
[2021-11-17] MEDS ORDERED: Melatonin 3 MG TAB PO PRN (18:11)
[2021-11-17] MEDS ORDERED: Sodium Chloride 0.9% 1,000 ML IV SCH (18:15)
[2021-11-17] MEDS ORDERED: Morphine 2 MG/ML VIAL SLOW IVP PRN ×2 (18:17)
[2021-11-17 18:44] VITALS: BMI 26.8
[2021-11-17] MEDS ORDERED: Nitroglycerin 0.4 MG TAB (25 Tab Bottle) SL PRN (20:19)
[2021-11-17] MEDS: Sodium Chloride 0.9% 1,000 ML IV SCH (20:29)
[2021-11-17] MEDS: Acetaminophen 325 MG TAB PO PRN (20:35)
[2021-11-17] MEDS ORDERED: Pantoprazole 40 MG VIAL IVP SCH (21:13)
[2021-11-17 21:46] LABS: Critical Call Chem Troponin I RESULT DECREASING; Troponin I 1.159 ng/mL (< 0.028)
[2021-11-18] MEDS: Aspirin/APAP/Caffeine Tab (Excedrin Migraine) PO PRN ×2 (00:05→16:23)
[2021-11-18 01:04] LABS: Troponin I 1.212 ng/mL (< 0.028)
[2021-11-18] MEDS ORDERED: hydrALAZINE 20 MG/ML VIAL SLOW IVP PRN (04:41)
[2021-11-18 05:09] LABS: ALT (SGPT) 12 U/L (8-55); AST (SGOT) 37 U/L (5-34); Albumin 3.5 g/dL (3.4-4.8); Alkaline Phosphatase 53 U/L (40-110); Anion Gap 15 mmol/L (10-20); BUN (Urea Nitrogen) 11 mg/dL (9.8-20.1); Bilirubin, Total 0.3 mg/dL (0.2-1.2); Calc. Creatinine Clearance 64 mL/min (70-130); Calcium 8.4 mg/dL (7.8-10.44); Carbon Dioxide 22 mmol/L (23-31); Chloride 105 mmol/L (98-107); Globulin 1.9 g/dL (2.4-3.5); Glucose 68 mg/dL (83-110); Magnesium 1.8 mg/dL (1.6-2.6); Phosphorus 3.3 mg/dL (2.3-4.7); Potassium 4.3 mmol/L (3.5-5.1); Protein, Total 5.4 g/dL (5.8-8.1); Sodium 138 mmol/L (136-145)
[2021-11-18 05:12] LABS: #Lymphocytes 0.7 thou/uL (1.20-3.40); #Monocytes 0.5 thou/uL (0.11-0.59); %Basophils 0.2 % (0.0-1.0); %Eosinophils 0.5 % (0.0-10.0); %Lymphocytes 16.7 % (21.0-51.0); %Neutrophils 70.7 % (42.0-75.0); Hemoglobin 12.2 g/dL (12.0-16.0); Mean Corpuscular HGB CONC 35.3 g/dL (32.0-36.0); Mean Corpuscular Hemoglobin 33.5 pg (27.0-31.0); Mean Corpuscular Volume 94.9 fL (78.0-98.0); Mean Platelet Volume 6.7 fL (7.4-10.4); Platelet Count 190 thou/uL (130-400); RBC Distribution Width 11.3 % (11.5-14.5); Red Blood Cell (RBC) Count 3.64 mill/uL (4.20-5.40); White Blood Cell (WBC) Count 4.2 thou/uL (4.8-10.8)
[2021-11-18] MEDS: Enoxaparin Sodium 60 MG/0.6 ML SYRINGE SC SCH ×2 (09:53→20:26)
[2021-11-18] MEDS: Aspirin 325 mg Enteric Coated Tablet PO SCH (09:53)
[2021-11-18] MEDS: Pantoprazole 40 MG VIAL IVP SCH (09:54)
[2021-11-18] MEDS ORDERED: carBAMazepine 200 MG TAB PO SCH ×2 (10:45→15:45)
[2021-11-18] MEDS ORDERED: Levothyroxine Sodium 50 MCG TAB PO SCH (10:45)
[2021-11-18] MEDS: Sodium Chloride 0.9% 1,000 ML IV SCH (16:14)
[2021-11-18 17:48] LABS: Carbamazepine-Tegretol 7.6 ug/mL (4.0-12.0)
[2021-11-18] MEDS: carBAMazepine 200 MG TAB PO SCH (20:26)
[2021-11-19] MEDS: Levothyroxine Sodium 50 MCG TAB PO SCH (06:24)
[2021-11-19 07:13] LABS: #Eosinphils 0.1 thou/uL (0.0-0.7); #Lymphocytes 0.9 thou/uL (1.20-3.40); #Monocytes 0.5 thou/uL (0.11-0.59); #Neutrophils 2.6 thou/uL (1.40-6.50); %Basophils 0.3 % (0.0-1.0); %Eosinophils 3.6 % (0.0-10.0); %Lymphocytes 20.7 % (21.0-51.0); %Monocytes 10.9 % (0.0-10.0); %Neutrophils 64.4 % (42.0-75.0); Hemoglobin 11.8 g/dL (12.0-16.0); Mean Corpuscular HGB CONC 34.6 g/dL (32.0-36.0); Mean Corpuscular Hemoglobin 32.9 pg (27.0-31.0); Mean Platelet Volume 6.3 fL (7.4-10.4); Platelet Count 177 thou/uL (130-400); RBC Distribution Width 11.3 % (11.5-14.5); Red Blood Cell (RBC) Count 3.59 mill/uL (4.20-5.40); White Blood Cell (WBC) Count 4.1 thou/uL (4.8-10.8)
[2021-11-19 07:33] LABS: Anion Gap 15 mmol/L (10-20); BUN (Urea Nitrogen) 11 mg/dL (9.8-20.1); Calc. Creatinine Clearance 66 mL/min (70-130); Calcium 8.2 mg/dL (7.8-10.44); Carbon Dioxide 19 mmol/L (23-31); Chloride 102 mmol/L (98-107); Glucose 71 mg/dL (83-110); Potassium 3.5 mmol/L (3.5-5.1); Sodium 132 mmol/L (136-145)
[2021-11-19] MEDS: Pantoprazole 40 MG VIAL IVP SCH (08:55)
[2021-11-19] MEDS: carBAMazepine 200 MG TAB PO SCH ×2 (08:55→21:20)
[2021-11-19] MEDS: Enoxaparin Sodium 60 MG/0.6 ML SYRINGE SC SCH ×2 (08:55→21:21)
[2021-11-19] MEDS: Aspirin 325 mg Enteric Coated Tablet PO SCH (08:55)
[2021-11-19] MEDS ORDERED: Nitrofurantoin Monohyd/M-Cryst 100 MG CAP PO SCH (09:45)
[2021-11-19] MEDS ORDERED: Gadobenate Dimeglumine 529 MG/1 ML (20ML VIAL) ONE (13:53)
[2021-11-19] MEDS: Aspirin/APAP/Caffeine Tab (Excedrin Migraine) PO PRN ×2 (15:08→21:25)
[2021-11-19] MEDS ORDERED: levETIRAcetam 500 MG/5 ML VIAL SLOW IVP SCH (21:15)
[2021-11-19] MEDS: Nitrofurantoin Monohyd/M-Cryst 100 MG CAP PO SCH (21:21)
[2021-11-19] MEDS: Sodium Chloride 0.9% 1,000 ML IV SCH (21:21)
[2021-11-20 05:05] LABS: #Eosinphils 0.2 thou/uL (0.0-0.7); #Lymphocytes 0.8 thou/uL (1.20-3.40); #Monocytes 0.4 thou/uL (0.11-0.59); #Neutrophils 2.7 thou/uL (1.40-6.50); %Basophils 0.6 % (0.0-1.0); %Eosinophils 5.3 % (0.0-10.0); %Lymphocytes 19.7 % (21.0-51.0); %Monocytes 10.1 % (0.0-10.0); %Neutrophils 64.3 % (42.0-75.0); Mean Corpuscular Hemoglobin 33.1 pg (27.0-31.0); Mean Corpuscular Volume 94.6 fL (78.0-98.0); Mean Platelet Volume 6.7 fL (7.4-10.4); Platelet Count 194 thou/uL (130-400); RBC Distribution Width 11.2 % (11.5-14.5); Red Blood Cell (RBC) Count 3.62 mill/uL (4.20-5.40); White Blood Cell (WBC) Count 4.2 thou/uL (4.8-10.8)
[2021-11-20 05:29] LABS: Anion Gap 14 mmol/L (10-20); BUN (Urea Nitrogen) 6 mg/dL (9.8-20.1); Calc. Creatinine Clearance 77 mL/min (70-130); Carbon Dioxide 22 mmol/L (23-31); Chloride 101 mmol/L (98-107); Glucose 73 mg/dL (83-110); Potassium 3.4 mmol/L (3.5-5.1); Sodium 134 mmol/L (136-145)
[2021-11-20] MEDS: Levothyroxine Sodium 50 MCG TAB PO SCH (05:46)
[2021-11-20] MEDS: Aspirin/APAP/Caffeine Tab (Excedrin Migraine) PO PRN (05:47)
[2021-11-20] MEDS: Enoxaparin Sodium 60 MG/0.6 ML SYRINGE SC SCH ×2 (10:00→20:32)
[2021-11-20] MEDS: carBAMazepine 200 MG TAB PO SCH ×2 (10:00→20:32)
[2021-11-20] MEDS: Aspirin 325 mg Enteric Coated Tablet PO SCH (10:00)
[2021-11-20] MEDS: levETIRAcetam 500 MG TAB PO SCH ×2 (10:01→20:32)
[2021-11-20] MEDS: Nitrofurantoin Monohyd/M-Cryst 100 MG CAP PO SCH ×2 (10:01→20:32)
[2021-11-20] MEDS: Pantoprazole 40 MG VIAL IVP SCH (10:01)
[2021-11-20] MEDS: Acetaminophen 325 MG TAB PO PRN (15:06)
[2021-11-20] MEDS: Sodium Chloride 0.9% 1,000 ML IV SCH (18:14)
[2021-11-21] MEDS: Sodium Chloride 0.9% 1,000 ML IV SCH (03:39)
[2021-11-21 04:26] LABS: #Eosinphils 0.3 thou/uL (0.0-0.7); #Lymphocytes 0.9 thou/uL (1.20-3.40); #Monocytes 0.5 thou/uL (0.11-0.59); #Neutrophils 2.5 thou/uL (1.40-6.50); %Basophils 0.8 % (0.0-1.0); %Eosinophils 7.2 % (0.0-10.0); %Lymphocytes 21.3 % (21.0-51.0); %Neutrophils 59.7 % (42.0-75.0); Hemoglobin 12.6 g/dL (12.0-16.0); Mean Corpuscular HGB CONC 35.2 g/dL (32.0-36.0); Mean Corpuscular Hemoglobin 33.3 pg (27.0-31.0); Mean Corpuscular Volume 94.4 fL (78.0-98.0); Platelet Count 191 thou/uL (130-400); RBC Distribution Width 11.3 % (11.5-14.5); Red Blood Cell (RBC) Count 3.79 mill/uL (4.20-5.40); White Blood Cell (WBC) Count 4.2 thou/uL (4.8-10.8)
[2021-11-21] MEDS: Aspirin/APAP/Caffeine Tab (Excedrin Migraine) PO PRN ×3 (04:29→20:15)
[2021-11-21 04:47] LABS: Anion Gap 16 mmol/L (10-20); BUN (Urea Nitrogen) 6 mg/dL (9.8-20.1); Calc. Creatinine Clearance 67 mL/min (70-130); Calcium 8.4 mg/dL (7.8-10.44); Carbon Dioxide 21 mmol/L (23-31); Chloride 103 mmol/L (98-107); Glucose 69 mg/dL (83-110); Potassium 3.6 mmol/L (3.5-5.1); Sodium 136 mmol/L (136-145)
[2021-11-21] MEDS: Levothyroxine Sodium 50 MCG TAB PO SCH (05:37)
[2021-11-21] MEDS ORDERED: Verapamil 5 MG/2 ML VIAL ONE (09:45)
[2021-11-21] MEDS ORDERED: Lidocaine 1% PF 5 ML VIAL ONE (09:45)
[2021-11-21] MEDS ORDERED: Heparin 10,000 UNITS/ 10 ML VIAL ONE (09:45)
[2021-11-21] MEDS ORDERED: Nitroglycerin 100MG/250ML BOT 250 ML ONE (09:46)
[2021-11-21] MEDS ORDERED: Iopamidol 370 76% 100 ML VIAL ONE (10:04)
[2021-11-21] MEDS: levETIRAcetam 500 MG TAB PO SCH ×2 (10:11→20:15)
[2021-11-21] MEDS: carBAMazepine 200 MG TAB PO SCH ×2 (10:11→20:15)
[2021-11-21] MEDS: Pantoprazole 40 MG VIAL IVP SCH (10:14)
[2021-11-21] MEDS: Enoxaparin Sodium 60 MG/0.6 ML SYRINGE SC SCH ×2 (10:34→20:15)
[2021-11-21] MEDS: Aspirin 325 mg Enteric Coated Tablet PO SCH (10:34)
[2021-11-21] MEDS ORDERED: Midazolam HCl 2 mg/2 ml Vial ONE (10:38)
[2021-11-21] MEDS ORDERED: Fentanyl 100 MCG/2 ML VIAL ONE (10:38)
[2021-11-21] MEDS ORDERED: Sodium Chloride 0.9% 200 ML IV SCH (11:21)
[2021-11-21] MEDS ORDERED: Acetaminophen/Codeine 30-300mg Tablet PO PRN (11:21)
[2021-11-21] MEDS ORDERED: Sodium Chloride 0.9% 500 ML IV SCH (11:30)
[2021-11-22] MEDS: Aspirin/APAP/Caffeine Tab (Excedrin Migraine) PO PRN ×2 (03:55→11:45)
[2021-11-22 04:52] LABS: #Eosinphils 0.2 thou/uL (0.0-0.7); #Lymphocytes 0.7 thou/uL (1.20-3.40); #Monocytes 0.5 thou/uL (0.11-0.59); #Neutrophils 2.6 thou/uL (1.40-6.50); %Basophils 0.4 % (0.0-1.0); %Eosinophils 6.1 % (0.0-10.0); %Lymphocytes 17.3 % (21.0-51.0); %Monocytes 11.1 % (0.0-10.0); %Neutrophils 65.1 % (42.0-75.0); Hemoglobin 12.8 g/dL (12.0-16.0); Mean Corpuscular Hemoglobin 33.4 pg (27.0-31.0); Mean Corpuscular Volume 95.4 fL (78.0-98.0); Mean Platelet Volume 6.9 fL (7.4-10.4); Platelet Count 201 thou/uL (130-400); RBC Distribution Width 11.4 % (11.5-14.5); Red Blood Cell (RBC) Count 3.84 mill/uL (4.20-5.40)
[2021-11-22 05:15] LABS: Anion Gap 21 mmol/L (10-20); BUN (Urea Nitrogen) 5 mg/dL (9.8-20.1); Calc. Creatinine Clearance 70 mL/min (70-130); Calcium 8.4 mg/dL (7.8-10.44); Carbon Dioxide 18 mmol/L (23-31); Chloride 103 mmol/L (98-107); Potassium 3.5 mmol/L (3.5-5.1); Sodium 138 mmol/L (136-145)
[2021-11-22 05:21] LABS: Glucose 57 mg/dL (83-110)
[2021-11-22] MEDS: Levothyroxine Sodium 50 MCG TAB PO SCH (05:38)
[2021-11-22] MEDS: levETIRAcetam 500 MG TAB PO SCH (09:40)
[2021-11-22] MEDS: Aspirin 325 mg Enteric Coated Tablet PO SCH (09:40)
[2021-11-22] MEDS: carBAMazepine 200 MG TAB PO SCH (09:40)
[2021-11-22] MEDS: Enoxaparin Sodium 60 MG/0.6 ML SYRINGE SC SCH (09:41)
[2021-11-22] MEDS: Pantoprazole 40 MG VIAL IVP SCH (09:41)
[2021-11-22 12:20] VITALS: BP 130/77; TEMP 99
== END 2021-11-22 13:35 | disposition home or self-care (01) | DRG 100 ==
LOC: ERS 14:09 → 2NO 16:08 → ERHOLD 18:22 → 2NO 20:57
PROVIDERS: ADMIT Hospitalist; ATTEND Hospitalist
PROC: 4A023N7 Measurement of Cardiac Sampling and Pressure, Left Heart, Percutaneous Approach (ICD-10-PCS; principal; 2021-11-17)
PROC: B2111ZZ Fluoroscopy of Multiple Coronary Arteries using Low Osmolar Contrast (ICD-10-PCS; 2021-11-17)
PROC: B2151ZZ Fluoroscopy of Left Heart using Low Osmolar Contrast (ICD-10-PCS; 2021-11-17)
DX: G40.909 Epilepsy, unspecified, not intractable, without status epilepticus (principal); I21.A1 Myocardial infarction type 2; N39.0 Urinary tract infection, site not specified; Z20.822 Contact with and (suspected) exposure to COVID-19; G50.0 Trigeminal neuralgia; E89.0 Postprocedural hypothyroidism; Z60.2 Problems related to living alone; J32.3 Chronic sphenoidal sinusitis; R79.89 Other specified abnormal findings of blood chemistry; T42.6X6A Underdosing of other antiepileptic and sedative-hypnotic drugs, initial encounter; E16.2 Hypoglycemia, unspecified; I25.2 Old myocardial infarction; Z86.73 Personal history of transient ischemic attack (TIA), and cerebral infarction without residual deficits; Z88.2 Allergy status to sulfonamides; Z88.8 Allergy status to other drugs, medicaments and biological substances; Z88.1 Allergy status to other antibiotic agents; Z91.040 Latex allergy status; Z90.49 Acquired absence of other specified parts of digestive tract; Z90.89 Acquired absence of other organs; Z79.890 Hormone replacement therapy; Z79.899 Other long term (current) drug therapy
CPT/HCPCS: 36415; 36416; 70450; 70553; 71045; 78452; 80048; 80053; 80156; 81003; 81015; 82550; 82553; 83735; 83880; 84100; 84146; 84484; 85025; 87086; 93005; 93017; 93306; 93458; 93798; 94760; 95712; 95819; 95957; 96365; 96372; 96375; 99152; A9500; A9577; C9113; J1100; J1200; J1644; J1650; J1953; J1956; J2250; J2765; J3010; J7050; Q9967; U0003; U0005

== ENCOUNTER 2022-11-08 12:29 | Observation (INO) | payer MEDICARE, BC ==
[2022-11-08 13:26] LABS: #Eosinphils 0.1 thou/uL (0.0-0.7); #Monocytes 0.5 thou/uL (0.11-0.59); #Neutrophils 3.9 thou/uL (1.40-6.50); %Basophils 0.4 % (0.0-1.0); %Eosinophils 2.1 % (0.0-10.0); %Lymphocytes 12.8 % (21.0-51.0); %Monocytes 9.7 % (0.0-10.0); %Neutrophils 74.8 % (42.0-75.0); Hemoglobin 13.2 g/dL (12.0-16.0); Mean Corpuscular HGB CONC 36.4 g/dL (32.0-36.0); Mean Corpuscular Hemoglobin 31.6 pg (27.0-31.0); Mean Corpuscular Volume 86.8 fl (78.0-98.0); Mean Platelet Volume 9.2 fL (7.4-10.4); Platelet Count 226 10x3/uL (130-400); Red Blood Cell (RBC) Count 4.18 mill/uL (4.20-5.40); White Blood Cell (WBC) Count 5.2 10x3/uL (4.8-10.8)
[2022-11-08] MEDS ORDERED: Metoclopramide HCl 10 MG/2 ML VIAL ONE (13:31)
[2022-11-08 13:50] LABS: ALT (SGPT) 13 U/L (8-55); AST (SGOT) 22 U/L (5-34); Albumin 4.3 g/dL (3.4-4.8); Alkaline Phosphatase 90 U/L (40-110); Anion Gap 14 mmol/L (10-20); BUN (Urea Nitrogen) 8 mg/dL (9.8-20.1); Bilirubin, Total 0.3 mg/dL (0.2-1.2); Calc. Creatinine Clearance 0 mL/min (70-130); Calcium 8.7 mg/dL (7.8-10.44); Carbon Dioxide 24 mmol/L (23-31); Chloride 92 mmol/L (98-107); Estimated GFR 82; Globulin 2.1 g/dL (2.4-3.5); Glucose 85 mg/dL (83-110); Magnesium 1.8 mg/dL (1.6-2.6); Potassium 3.9 mmol/L (3.5-5.1); Protein, Total 6.4 g/dL (5.8-8.1); Sodium 126 mmol/L (136-145)
[2022-11-08 16:07] LABS: Carbamazepine-Tegretol 9.9 ug/mL (4.0-12.0)
[2022-11-08] MEDS ORDERED: Ondansetron ODT 4 MG TAB PO PRN (16:44)
[2022-11-08] MEDS ORDERED: Ondansetron PF 4 MG/2 ML Vial IVP PRN (16:44)
[2022-11-08 18:47] VITALS: BMI 24.4
[2022-11-08] MEDS: Sodium Chloride 0.9% 1,000 ML IV SCH (19:40)
[2022-11-08] MEDS: Aspirin/APAP/Caffeine Tab (Excedrin Migraine) PO PRN (19:54)
[2022-11-08] MEDS: carBAMazepine 200 MG TAB PO SCH (20:53)
[2022-11-09] MEDS: Sodium Chloride 0.9% 1,000 ML IV SCH (05:53)
[2022-11-09] MEDS ORDERED: Levothyroxine Sodium 50 MCG TAB PO SCH (06:00)
[2022-11-09 06:47] LABS: #Eosinphils 0.2 thou/uL (0.0-0.7); #Monocytes 0.5 thou/uL (0.11-0.59); #Neutrophils 2.6 thou/uL (1.40-6.50); %Basophils 0.8 % (0.0-1.0); %Eosinophils 5.1 % (0.0-10.0); %Lymphocytes 15.6 % (21.0-51.0); %Monocytes 12.2 % (0.0-10.0); Hemoglobin 12.3 g/dL (12.0-16.0); Mean Corpuscular HGB CONC 36.2 g/dL (32.0-36.0); Mean Corpuscular Hemoglobin 32.1 pg (27.0-31.0); Mean Corpuscular Volume 88.8 fl (78.0-98.0); Mean Platelet Volume 8.7 fL (7.4-10.4); Platelet Count 194 10x3/uL (130-400); RBC Distribution Width 12.2 % (11.5-14.5); Red Blood Cell (RBC) Count 3.83 mill/uL (4.20-5.40); White Blood Cell (WBC) Count 3.9 10x3/uL (4.8-10.8)
[2022-11-09 07:22] LABS: Anion Gap 12 mmol/L (10-20); BUN (Urea Nitrogen) 6 mg/dL (9.8-20.1); Calc. Creatinine Clearance 57 mL/min (70-130); Calcium 8.4 mg/dL (7.8-10.44); Carbon Dioxide 23 mmol/L (23-31); Chloride 99 mmol/L (98-107); Estimated GFR 87; Glucose 75 mg/dL (83-110); Potassium 3.7 mmol/L (3.5-5.1); Sodium 130 mmol/L (136-145)
[2022-11-09] MEDS ORDERED: Atorvastatin Calcium 40 MG TAB PO SCH (09:00)
[2022-11-09] MEDS: carBAMazepine 200 MG TAB PO SCH ×2 (09:13→19:10)
[2022-11-09] MEDS: Acetaminophen 325 MG TAB PO PRN ×2 (09:16→16:52)
[2022-11-09] MEDS: Atorvastatin Calcium 40 MG TAB PO SCH (16:51)
[2022-11-09 17:22] LABS: Anion Gap 11 mmol/L (10-20); BUN (Urea Nitrogen) 9 mg/dL (9.8-20.1); Calc. Creatinine Clearance 58 mL/min (70-130); Calcium 8.4 mg/dL (7.8-10.44); Carbon Dioxide 25 mmol/L (23-31); Chloride 100 mmol/L (98-107); Estimated GFR 88; Glucose 110 mg/dL (83-110); Potassium 3.9 mmol/L (3.5-5.1); Sodium 132 mmol/L (136-145)
[2022-11-09] MEDS: Gabapentin 100 MG CAP PO SCH (19:10)
[2022-11-09 23:45] LABS: Anion Gap 9 mmol/L (10-20); BUN (Urea Nitrogen) 8 mg/dL (9.8-20.1); Calc. Creatinine Clearance 61 mL/min (70-130); Calcium 8.3 mg/dL (7.8-10.44); Carbon Dioxide 25 mmol/L (23-31); Chloride 102 mmol/L (98-107); Estimated GFR 89; Glucose 121 mg/dL (83-110); Potassium 3.9 mmol/L (3.5-5.1); Sodium 132 mmol/L (136-145)
[2022-11-10] MEDS: Aspirin/APAP/Caffeine Tab (Excedrin Migraine) PO PRN ×2 (03:20→22:14)
[2022-11-10] MEDS: Levothyroxine Sodium 88 MCG TAB PO SCH (06:28)
[2022-11-10 07:15] LABS: #Basophils 0.1 thou/uL (0.0-0.2); #Eosinphils 0.3 thou/uL (0.0-0.7); #Monocytes 0.7 thou/uL (0.11-0.59); %Basophils 0.8 % (0.0-1.0); %Eosinophils 4.8 % (0.0-10.0); %Lymphocytes 16.5 % (21.0-51.0); %Monocytes 10.9 % (0.0-10.0); %Neutrophils 66.7 % (42.0-75.0); Hemoglobin 13.7 g/dL (12.0-16.0); Mean Corpuscular HGB CONC 35.3 g/dL (32.0-36.0); Mean Corpuscular Hemoglobin 31.6 pg (27.0-31.0); Mean Corpuscular Volume 89.4 fl (78.0-98.0); Mean Platelet Volume 8.7 fL (7.4-10.4); Platelet Count 222 10x3/uL (130-400); RBC Distribution Width 12.4 % (11.5-14.5); Red Blood Cell (RBC) Count 4.34 mill/uL (4.20-5.40)
[2022-11-10 07:34] LABS: Anion Gap 14 mmol/L (10-20); BUN (Urea Nitrogen) 6 mg/dL (9.8-20.1); Calc. Creatinine Clearance 57 mL/min (70-130); Carbon Dioxide 25 mmol/L (23-31); Chloride 100 mmol/L (98-107); Estimated GFR 86; Glucose 97 mg/dL (83-110); Potassium 4.1 mmol/L (3.5-5.1); Sodium 135 mmol/L (136-145)
[2022-11-10] MEDS: carBAMazepine 200 MG TAB PO SCH ×2 (08:31→21:25)
[2022-11-10] MEDS: Gabapentin 100 MG CAP PO SCH ×2 (08:34→22:14)
[2022-11-10] MEDS: Atorvastatin Calcium 40 MG TAB PO SCH (16:20)
[2022-11-11] MEDS: Levothyroxine Sodium 88 MCG TAB PO SCH (06:30)
[2022-11-11] MEDS: carBAMazepine 200 MG TAB PO SCH (08:30)
[2022-11-11] MEDS: Gabapentin 100 MG CAP PO SCH (08:31)
[2022-11-11 11:50] VITALS: BP 144/77; TEMP 98.6
== END 2022-11-11 13:24 | disposition home or self-care (01) ==
LOC: ERS 12:29 → ERHOLD 16:48 → T4-A 18:02
PROVIDERS: ADMIT Internal Medicine; ATTEND Internal Medicine
DX: E87.1 Hypo-osmolality and hyponatremia (principal); G40.909 Epilepsy, unspecified, not intractable, without status epilepticus; I10 Essential (primary) hypertension; E78.5 Hyperlipidemia, unspecified; E03.9 Hypothyroidism, unspecified; Z79.890 Hormone replacement therapy; Z86.73 Personal history of transient ischemic attack (TIA), and cerebral infarction without residual deficits; Z79.899 Other long term (current) drug therapy; Z79.82 Long term (current) use of aspirin; Z90.49 Acquired absence of other specified parts of digestive tract; Z90.89 Acquired absence of other organs; Z88.2 Allergy status to sulfonamides; Z91.040 Latex allergy status; Z88.1 Allergy status to other antibiotic agents; Z88.8 Allergy status to other drugs, medicaments and biological substances
CPT/HCPCS: 36415; 70450; 80048; 80053; 80156; 83735; 85025; 95712; 96365; J2765; J7050

== ENCOUNTER 2023-05-01 11:15 | Observation (INO) | payer MEDICARE, BC ==
[2023-05-01 12:21] LABS: #Eosinphils 0.1 thou/uL (0.0-0.7); #Monocytes 0.5 thou/uL (0.11-0.59); #Neutrophils 3.7 thou/uL (1.40-6.50); %Basophils 0.4 % (0.0-1.0); %Eosinophils 2.5 % (0.0-10.0); %Lymphocytes 15.6 % (21.0-51.0); %Monocytes 9.2 % (0.0-10.0); %Neutrophils 72.1 % (42.0-75.0); Hematocrit 36.3 % (36.0-47.0); Hemoglobin 12.4 g/dL (12.0-16.0); Mean Corpuscular HGB CONC 34.2 g/dL (32.0-36.0); Mean Corpuscular Hemoglobin 31.5 pg (27.0-31.0); Mean Corpuscular Volume 92.1 fl (78.0-98.0); Mean Platelet Volume 9.3 fL (7.4-10.4); Platelet Count 192 10x3/uL (130-400); RBC Distribution Width 12.7 % (11.5-14.5); Red Blood Cell (RBC) Count 3.94 mill/uL (4.20-5.40); White Blood Cell (WBC) Count 5.1 10x3/uL (4.8-10.8)
[2023-05-01] MEDS ORDERED: Lidocaine 1% PF 5 ML VIAL ONE (12:37)
[2023-05-01 12:39] LABS: ALT (SGPT) 12 U/L (8-55); AST (SGOT) 18 U/L (5-34); Albumin 4.1 g/dL (3.4-4.8); Alkaline Phosphatase 77 U/L (40-110); Anion Gap 15 mmol/L (10-20); BUN (Urea Nitrogen) 17 mg/dL (9.8-20.1); Bilirubin, Total 0.4 mg/dL (0.2-1.2); Calc. Creatinine Clearance 0 mL/min (70-130); Calcium 8.7 mg/dL (7.8-10.44); Carbon Dioxide 26 mmol/L (23-31); Chloride 104 mmol/L (98-107); Estimated GFR 79; Globulin 2.1 g/dL (2.4-3.5); Glucose 85 mg/dL (83-110); Potassium 3.6 mmol/L (3.5-5.1); Protein, Total 6.2 g/dL (5.8-8.1); Sodium 141 mmol/L (136-145)
[2023-05-01 12:43] LABS: INR-International Normal Ratio 1.1; PTT 27.7 sec (22.9-36.1); Prothrombin Time 14.4 sec (12.0-14.7)
[2023-05-01] MEDS ORDERED: Boostrix 0.5 ML (Tdap) VIAL (>/=7 yrs of age) ONE (14:20)
[2023-05-01] MEDS ORDERED: hydrALAZINE 20 MG/ML VIAL SLOW IVP PRN (15:02)
[2023-05-01] MEDS ORDERED: TETANUS, DIPHTHERIA TOX,ADULT (TDVAX) 0.5 ML VIAL IM ONE (15:02)
[2023-05-01] MEDS ORDERED: Acetaminophen 325 MG TAB PO PRN ×2 (15:02→15:05)
[2023-05-01] MEDS ORDERED: traMADol HCl 50 MG TAB PO PRN (15:02)
[2023-05-01 17:53] VITALS: BMI 23.3
[2023-05-01] MEDS: carBAMazepine 200 MG TAB PO SCH (20:08)
[2023-05-01] MEDS: Gabapentin 100 MG CAP PO SCH (20:21)
[2023-05-01] MEDS ORDERED: Famotidine 20 MG TAB PO SCH ×2 (21:00)
[2023-05-02 04:20] LABS: #Eosinphils 0.2 thou/uL (0.0-0.7); #Monocytes 0.4 thou/uL (0.11-0.59); %Basophils 0.6 % (0.0-1.0); %Eosinophils 6.8 % (0.0-10.0); %Lymphocytes 25.7 % (21.0-51.0); %Monocytes 11.3 % (0.0-10.0); %Neutrophils 55.3 % (42.0-75.0); Hematocrit 32.9 % (36.0-47.0); Hemoglobin 11.4 g/dL (12.0-16.0); Mean Corpuscular HGB CONC 34.7 g/dL (32.0-36.0); Mean Corpuscular Hemoglobin 31.8 pg (27.0-31.0); Mean Corpuscular Volume 91.9 fl (78.0-98.0); Platelet Count 158 10x3/uL (130-400); RBC Distribution Width 12.6 % (11.5-14.5); Red Blood Cell (RBC) Count 3.58 mill/uL (4.20-5.40); White Blood Cell (WBC) Count 3.5 10x3/uL (4.8-10.8)
[2023-05-02 04:46] LABS: Anion Gap 12 mmol/L (10-20); BUN (Urea Nitrogen) 13 mg/dL (9.8-20.1); Calc. Creatinine Clearance 54 mL/min (70-130); Calcium 8.3 mg/dL (7.8-10.44); Carbon Dioxide 26 mmol/L (23-31); Chloride 104 mmol/L (98-107); Estimated GFR 86; Glucose 87 mg/dL (83-110); Potassium 3.8 mmol/L (3.5-5.1); Sodium 138 mmol/L (136-145)
[2023-05-02] MEDS: Levothyroxine Sodium 88 MCG TAB PO SCH (05:15)
[2023-05-02] MEDS: carBAMazepine 200 MG TAB PO SCH ×2 (09:22→20:27)
[2023-05-02] MEDS: Gabapentin 100 MG CAP PO SCH ×2 (09:22→20:24)
[2023-05-02] MEDS: Bacitracin 1 PK TOP SCH (20:27)
[2023-05-03] MEDS: Levothyroxine Sodium 88 MCG TAB PO SCH (06:17)
[2023-05-03] MEDS: carBAMazepine 200 MG TAB PO SCH (08:49)
[2023-05-03] MEDS: Gabapentin 100 MG CAP PO SCH (08:49)
[2023-05-03] MEDS: Bacitracin 1 PK TOP SCH (08:49)
[2023-05-03] MEDS ORDERED: Polyethylene Glycol 3350 17 GM Packet PO SCH (09:00)
[2023-05-03 12:05] VITALS: BP 103/65; TEMP 98.1
[2023-05-03] MEDS ORDERED: Docusate Sodium 10 MG/1 ML Oral Suspension PO SCH (21:00)
[2023-05-03] MEDS ORDERED: Docusate 100 MG CAP PO SCH (21:00)
== END 2023-05-03 15:55 | disposition home or self-care (01) ==
LOC: ERS 11:15 → 2SE 15:05
PROVIDERS: ADMIT Specialist; ATTEND Specialist
PROC: 0PSJXZZ Reposition Left Radius, External Approach (ICD-10-PCS; principal; 2023-05-01)
PROC: 0HQ1XZZ Repair Face Skin, External Approach (ICD-10-PCS; 2023-05-01)
DX: S06.6X0A Traumatic subarachnoid hemorrhage without loss of consciousness, initial encounter (principal); S52.102A Unspecified fracture of upper end of left radius, initial encounter for closed fracture; S01.81XA Laceration without foreign body of other part of head, initial encounter; G40.909 Epilepsy, unspecified, not intractable, without status epilepticus; E03.9 Hypothyroidism, unspecified; E78.5 Hyperlipidemia, unspecified; Z88.8 Allergy status to other drugs, medicaments and biological substances; Z91.040 Latex allergy status; Z88.2 Allergy status to sulfonamides; Z79.82 Long term (current) use of aspirin; Z79.899 Other long term (current) drug therapy; Z86.73 Personal history of transient ischemic attack (TIA), and cerebral infarction without residual deficits; W01.0XXA Fall on same level from slipping, tripping and stumbling without subsequent striking against object, initial encounter
CPT/HCPCS: 12011; 24650; 70450 ×2; 72125; 73080; 73200; 80048; 80053; 85025 ×2; 85610; 85730; 90471; 90715; 97116; 99285; G0378 ×4; 36415

== ENCOUNTER 2023-05-07 13:34 | Emergency (ER) | payer MEDICARE, BC | END 2023-05-07 15:20 | disposition home or self-care (01) | LOC: ERS 13:34 | DX: S01.112D Laceration without foreign body of left eyelid and periocular area, subsequent encounter (principal) ==

== ENCOUNTER 2023-05-22 12:16 | Outpatient (CLI) | payer MEDICARE, BC | END 2023-05-22 12:17 | disposition home or self-care (01) | LOC: BICCT 12:16 | PROVIDERS: ATTEND Neurological Surgery | DX: S06.6X0A Traumatic subarachnoid hemorrhage without loss of consciousness, initial encounter (principal) | CPT/HCPCS: 70450 ==

== ENCOUNTER 2023-07-23 10:19 | Outpatient (CLI) | payer MEDICARE, BC | END 2023-07-23 10:20 | disposition home or self-care (01) | LOC: SCSCT 10:19 | PROVIDERS: ATTEND Family Medicine | DX: I60.9 Nontraumatic subarachnoid hemorrhage, unspecified (principal); M54.41 Lumbago with sciatica, right side; M54.42 Lumbago with sciatica, left side; G89.29 Other chronic pain | CPT/HCPCS: 70450 ==

== ENCOUNTER 2023-11-18 13:42 | Outpatient (CLI) | payer MEDICARE, BC | END 2023-11-18 13:43 | disposition home or self-care (01) | LOC: BICMAMMO 13:42 | PROVIDERS: ATTEND Family Medicine | DX: Z12.31 Encounter for screening mammogram for malignant neoplasm of breast (principal); Z13.820 Encounter for screening for osteoporosis; M81.0 Age-related osteoporosis without current pathological fracture; M85.852 Other specified disorders of bone density and structure, left thigh; Z78.0 Asymptomatic menopausal state | CPT/HCPCS: 77063; 77067; 77080 ==

== ENCOUNTER 2023-12-01 13:23 | Emergency (ER) | payer MEDICARE, BC ==
[2023-12-01 13:53] LABS: #Basophils Less than 0.03 10x3/uL (0.0-0.2); %Basophils 0.5 % (0.0-1.0); %Eosinophils 2.8 % (0.0-10.0); %Lymphocytes 20.5 % (21.0-51.0); %Monocytes 9.2 % (0.0-10.0); %Neutrophils 66.7 % (42.0-75.0); Hematocrit 36.5 % (36.0-47.0); Hemoglobin 13.2 g/dL (12.0-16.0); Mean Corpuscular HGB CONC 36.2 g/dL (32.0-36.0); Mean Corpuscular Hemoglobin 32.7 pg (27.0-31.0); Mean Corpuscular Volume 90.3 fL (78.0-98.0); Mean Platelet Volume 8.9 fL (7.4-10.4); Platelet Count 196 10x3/uL (130-400); Red Blood Cell (RBC) Count 4.04 mill/uL (4.20-5.40)
[2023-12-01 14:09] LABS: ALT (SGPT) 13 U/L (8-55); AST (SGOT) 21 U/L (5-34); Albumin 4.3 g/dL (3.4-4.8); Alkaline Phosphatase 72 U/L (40-110); Anion Gap 14 mmol/L (10-20); BUN (Urea Nitrogen) 13 mg/dL (9.8-20.1); Bilirubin, Total 0.4 mg/dL (0.2-1.2); Calc. Creatinine Clearance 0 mL/min (70-130); Calcium 8.7 mg/dL (7.8-10.44); Carbon Dioxide 23 mmol/L (23-31); Chloride 98 mmol/L (98-107); Estimated GFR 87; Globulin 2.3 g/dL (2.4-3.5); Glucose 80 mg/dL (83-110); Potassium 4.7 mmol/L (3.5-5.1); Protein, Total 6.6 g/dL (5.8-8.1); Sodium 130 mmol/L (136-145)
[2023-12-01 14:28] LABS: Influenza A by NAA Not Detected (NotDetected); Influenza B by NAA Not Detected (NotDetected); SARS-CoV-2 NAA Rapid Test Not Detected (NotDetected)
[2023-12-01 16:25] LABS: Troponin I 0.024 ng/mL (< 0.028)
[2023-12-01] MEDS ORDERED: Acetaminophen 500 MG TAB ONE ×2 (17:12→17:13)
[2023-12-01] MEDS ORDERED: Ketorolac Tromethamine 30 MG (1 mL) VIAL ONE (17:12)
[2023-12-01] MEDS ORDERED: Metoclopramide HCl 10 MG (2 mL) VIAL ONE (17:12)
== END 2023-12-01 18:31 | disposition home or self-care (01) ==
LOC: ERS 13:23
DX: R51.9 Headache, unspecified (principal); G50.0 Trigeminal neuralgia; E87.1 Hypo-osmolality and hyponatremia; I10 Essential (primary) hypertension; E03.9 Hypothyroidism, unspecified; Z79.899 Other long term (current) drug therapy
CPT/HCPCS: 0240U; 70450; 80053; 84484; 85025; 93005; J1885; J2765; 36415; 96365; 96375

== ENCOUNTER 2024-04-13 15:08 | Emergency (ER) | payer MEDICARE, BC ==
[2024-04-13] MEDS ORDERED: HYDROcodone/Acetaminophen 5/325 mg Tablet ONE (16:50)
[2024-04-13] MEDS ORDERED: Gabapentin 100 MG CAP ONE (16:53)
[2024-04-13] MEDS ORDERED: Ketorolac Tromethamine 30 MG (1 mL) VIAL ONE (17:29)
[2024-04-13] MEDS ORDERED: Metoclopramide HCl 10 MG (2 mL) VIAL ONE (17:30)
== END 2024-04-13 18:05 | disposition home or self-care (01) ==
LOC: ERS 15:08
DX: G50.0 Trigeminal neuralgia (principal); R29.700 NIHSS score 0; E03.9 Hypothyroidism, unspecified; I10 Essential (primary) hypertension; Z79.899 Other long term (current) drug therapy
CPT/HCPCS: J1885; J2765; 96372; 99283